=== PATIENT | female | born 1970 | race Caucasian/White ===

== ENCOUNTER → 2019-09-17 19:47 | Outpatient (CLI) | payer MEDICARE, MEDICAID, SELFPAY ==
[2019-09-17 19:50] LABS: Microscopic, Urine URINE MICROSCOPIC (MICROSCOPIC)
[2019-09-17 20:00] LABS: Basophils % 0.1 % (0.1-2.0); Hematocrit 39.7 % (37.0-47.0); Lymphocytes # 0.6 K/mm3 (0.7-4.5); Lymphocytes % 3.1 % (10-50); Mean Corpuscular HGB Conc 32.9 g/dL (31.8-35.4); Mean Corpuscular Hemoglobin 34.7 pg (27.0-31.2); Mean Corpuscular Volume 105.6 fl (81-99); Monocytes # 1.1 K/mm3 (0.1-1.0); Monocytes % 5.4 % (1.7-9.3); Neutrophils # 17.6 K/mm3 (1.8-7.8); Neutrophils % 91.3 % (37.0-80.0); Platelet Count 156 K/mm3 (142-424); Red Blood Count 3.76 M/mm3 (4.20-5.40); Red Cell Distribution Width 12.9 % (11.5-17.5); White Blood Count 19.3 K/mm3 (4.8-10.8)
[2019-09-17 20:08] LABS: MANUAL DIFFERENTIAL MANUAL DIFFERENTIAL (MANUAL DIFF)
[2019-09-17 20:21] LABS: Appearance,Urine CLEAR (Clear); Bilirubin,Urine Negative (Negative); Blood, Urine Negative (Negative); Glucose,Urine (UA) Negative (Negative); Ketones,Urine Negative (Negative); Leukocyte Esterase,Urine Negative (Negative); Nitrate,Urine Negative (Negative); PH,Urine 6.5 (5.0-8.5); Protein,Urine 2+ (Negative); Specific Gravity, Urine >= 1.030 (1.005-1.030)
[2019-09-17 20:28] LABS: Alanine Aminotransferase 21 U/L (12-78); Albumin Level 2.4 gm/dL (3.4-5.0); Albumin/Globulin Ratio 0.6 (1.1-1.8); Alkaline Phosphatase 111 U/L (46-116); Anion Gap 14.4 mEq/L (5-15); Aspartate Amino Transferase 33 U/L (15-37); Bilirubin,Total 0.4 mg/dL (0.2-1.0); Blood Urea Nitrogen 15 mg/dL (7-18); Calcium 8.9 mg/dL (8.5-10.1); Carbon Dioxide 27 mmol/L (21.0-32.0); Chloride 98 mmol/L (98-107); Creatinine,Serum 0.74 mg/dL (0.55-1.02); Estimated Glomerular Filt Rate 84 ml/min (>60); GFR (African American) 101 ML/MIN (>60); Globulin 3.7 gm/dl (1.3-3.2); Glucose 88 mg/dL (74-106); Potassium 3.4 mmoL/L (3.5-5.1); Sodium 136 mmol/L (136-145); Total Protein,Serum 6.1 gm/dL (6.4-8.2)
[2019-09-17 20:35] LABS: Color,Urine Dark Yellow (Yellow)
[2019-09-17 20:36] LABS: Bacteria,Urine Trace /lpf; Squamous Epithelial Cell,Urine Occasional #/hpf (0-5); WBC,Urine Occasional #/hpf (0-3)
[2019-09-17 21:07] LABS: Anisocytosis 1+; Lymphocytes % 6 % (10-50); Macrocytosis 1+; Monocytes % 5 % (2-9); Neutrophils % 89 % (42-76); Platelet Estimate Normal; Total Cells Counted 100
== END ==
PROVIDERS: Visit Provider Emergency Medicine
DX: R50.9 Fever, unspecified (principal)
CPT/HCPCS: 80053; 81001; 85007; 85025; 87040; 87275; 87276

== ENCOUNTER → 2020-05-15 09:26 | Outpatient (CLI) | payer MEDICARE, MEDICAID, SELFPAY ==
[2020-05-16 16:36] LABS: Covid-19 Nasal PCR Sendout UK Not Detected
== END ==
PROVIDERS: PCP Emergency Medicine; Visit Provider Emergency Medicine
DX: Z03.818 Encounter for observation for suspected exposure to other biological agents ruled out (principal); R50.9 Fever, unspecified
CPT/HCPCS: U0003

== ENCOUNTER 2020-10-21 06:32 | Emergency (ER) | payer MEDICARE, MEDICAID, SELFPAY ==
[2020-10-21 06:33] VITALS: BP 166/96; PULSE 66; RESP 18; TEMP 36.4; O2SAT 94; BMI 21.6
--- NOTE | 2020-10-21 06:42 | XR_ITS ---
PROCEDURE: XR PELVIS 1-2V CLINICAL INDICATION: fall Posttraumatic pain COMPARISON: No exams were available for comparison TECHNIQUE: XR Pelvis AP View FINDINGS: No fracture or dislocation is evident. No significant degenerative change. No lytic or blastic change. IMPRESSION: No acute findings. Dictated by: Tommy Lam MD 10/21/2020 09:31 Tommy Lam MD in [place] 10/21/2020 09:31
--- NOTE | 2020-10-21 06:42 | CT_ITS ---
PROCEDURE: CT HEAD/BRAIN WO CON CLINICAL INDICATION: fall Head injury with headache/pain, contusion, abrasion or hematoma Deep brain stimulator implant COMPARISON: CT HDWO CT HEAD W/O CONTRAST from 09/22/2015 TECHNIQUE: Axial images obtained. All CT scans at the facility use one or more dose reduction, viz: automated exposure control, ma/kV adjustment per patient size (including targeted exams where dose is matched to indication, i.e. head), or iterative reconstruction technique. FINDINGS: Exam is limited by motion artifact. There are bilateral subthalamic nucleus deep brain stimulators in place. There is diffuse cerebral atrophy with enlarged ventricles with periventricular hypointensity consistent with ischemic gliotic change from microvascular disease. No midline shift mass effect intracranial hemorrhage, or hydrocephalus is evident. There is left parietal scalp soft tissue swelling. No calvarial fracture. No mastoid effusion or sinus air-fluid level. IMPRESSION: 1. Left parietal scalp swelling consistent with hematoma. 2. Subthalamic nucleus deep brain stimulators in place. 3. Atrophy with chronic ischemic gliotic change Dictated by: Tomym Lam MD 10/21/2020 09:26 Tommy Lam MD in [facility] 10/21/2020 09:26
--- NOTE | 2020-10-21 06:42 | XR_ITS ---
PROCEDURE: XR CHEST AP CLINICAL HISTORY: fall Posttraumatic pain COMPARISON: CR CXR1 CHEST-PORTABLE from 04/17/2016 CR CXR CHEST(2 VIEWS-NOT PORTABLE) from 04/18/2016 CR CXR1VP XR chest portable from 02/07/2018 FINDINGS: The cardiomediastinal silhouette and pulmonary vascularity are within normal limits. The lungs are clear without infiltrates, suspicious nodules, or pleural effusions. Neurostimulator device is present with the power pack in the right infraclavicular region. There does appear to be post surgical changes of the distal aspect of the right clavicle. IMPRESSION: No acute findings. Dictated by: Tommy Lam MD 10/21/2020 09:30 Tommy Lam MD in [facility] 10/21/2020 09:30
--- NOTE | 2020-10-21 06:42 | CT_ITS ---
PROCEDURE: CT CERVICAL SPINE WO CON CLINICAL INDICATION: fall Neck injury with pain, contusion/abrasion or hematoma, cervical sprain/strain the COMPARISON: No exams were available for comparison TECHNIQUE: Axial images obtained with sagittal and coronal reformats. All CT scans at the facility use one or more dose reduction, viz: automated exposure control, ma/kV adjustment per patient size (including targeted exams where dose is matched to indication, i.e. head), or iterative reconstruction technique. Axial spiral CT scanning performed of the cervical spine beginning at the base of the skull and continuing to the upper T-spine. 3-D multiplanar reconstruction with 3-D manipulation of volumetric data set in image rendering was completed by the radiologist and/or technologist with the supervision of the radiologist on independent workstation. FINDINGS: No fracture or dislocation. No lytic or blastic change. There is reversal of the cervical lordosis which may be due to patient position or muscle spasm. Degenerative disc disease is present C4-C5 C5-C6 and C6-C7. There is facet and uncovertebral hypertrophy with multilevel foraminal narrowing. Lung apices are clear. IMPRESSION: 1. No acute fracture. 2. Multilevel cervical spondylosis with reversal of lordosis Dictated by: Tommy Lam MD 10/21/2020 09:29 Tommy Lam MD in [facility] 10/21/2020 09:29
--- NOTE | 2020-10-21 06:50 | PC.NURSE ---
Dr Anders at bedside and Dermabond to approx 2cm lac on forehead, bleeding controlled
--- NOTE | 2020-10-21 07:30 | HMH.EDFALL ---
ED Disposition Clinical Impression: Sem[place]'s disease Fall Qualifiers: Encounter type: initial encounter Qualified Code(s): W19.XXXA - Unspecified fall, initial encounter Laceration of face Qualifiers: Encounter type: initial encounter Qualified Code(s): S01.81XA - Laceration without foreign body of other part of head, initial encounter Head contusion Qualifiers: Encounter type: initial encounter Contusion of head detail: scalp Qualified Code(s): S00.03XA - Contusion of scalp, initial encounter Disposition: Home, Self-Care Condition on Discharge: Good Instructions: How to Prevent Falls Additional Instructions: resume prev orders Referrals: Christopher Anders MD [Primary Care Provider] - - Critical Care Critical Care Time: No Attestation: On 10/21/20, the high probability of a clinically significant, sudden or life threatening deterioration of the following system(s) required my full and direct attention, intervention and personal management. The time I documented below is in addition to time spent performing reported procedures but includes the following listed in this critical care notation. Medical Decision Making - Medical Records Medical records reviewed: Yes: I reviewed the patient's medical records. - Uday Inquiry Pt receiving controlled substance: No Vital Signs: 10/21/20 06:33 Temperature 97.5 F L Temperature Source Oral Pulse Rate [Right] 66 Respiratory Rate 18 Blood Pressure [Right Arm] 166/96 H Blood Pressure Mean [Right Arm] 119 Blood Pressure Source [Right Arm] Automatic Cuff Blood Pressure Position [Right Arm] Supine 02 Sat by Pulse Oximetry 94 L Oxygen Delivery Method Room Air Orders (Tests/Meds): ORDERS Category Date Time Status CT cervical spine wo con Stat Cat Scan 10/21/20 06:[address] head/brain wo con Stat Cat Scan 10/21/20 06:42 Taken Pelvis XR 1-2 views [XR pelvis 1-2V] Stat Exams 10/21/20 06:42 Taken XR chest AP Stat Exams 10/21/20 06:42 Taken - Radiology Data #1 Image(s): Chest, Pelvis Image Reviewed: Yes I reviewed the patient's radiology image Preliminary Findings: No Fracture Seen - CT Data CT Scan: Head, C-Spine Time Received: 07:[address] Reviewed: Yes: I have viewed the radiologist's interpretation Preliminary Findings: Abnormal, No Fracture Seen Fall HPI - General Chief Complaint: Fall Stated Complaint: fall Time Seen by Provider: 10/21/20 06:50 Mode of Arrival: EMS Source of Information: Patient, EMS, Medical Record Limitations: Physical Limitations Description of Symptoms (Recalled from ER Triage Doc. by RN): Pt fell [facility] with small Lac to forehead [facility] staff denies pt LOC. Pt baseline is non-verbal. - History of Present Illness HPI Narrative: fell at f with facial lac and has known yousuf MD complaint: fall Onset (ago): hour(s) Fall from: out of bed Fall witnessed: no [facility] Loss of consciousness: none Prolonged down time: no Location of injury: head, face, neck Severity: moderate Associated symptoms (after fall): denies - Related Data Home Medications Medication Instructions Recorded Confirmed acetaminophen 500 mg tablet 500 mg PO Q6H PRN tab 01/01/18 09/25/20 amantadine HCl 100 mg capsule 100 mg PO TID cap 01/01/18 09/25/20 bisacodyl 10 mg rectal suppository 10 mg IN ONCE PRN 01/01/18 09/25/20 clonazepam 0.5 mg tablet 0.5 mg PO DAILY tab 01/01/18 09/25/20 clonazepam 2 mg tablet 2 mg PO QHS 01/01/18 09/25/20 dextromethorphan-guaifenesin 10 10 ml PO Q4-6H PRN 01/01/18 09/25/20 mg-100 mg/5 mL oral liquid divalproex 125 mg capsule,delayed 500 mg PO BID cap 01/01/18 09/25/20 release sprinkle docusate sodium 250 mg capsule 250 mg PO DAILY cap 01/01/18 09/25/20 fluticasone propionate 50 2 spray INTRANASAL DAILY g 01/01/18 09/25/20 mcg/actuation nasal spray,suspension hydrocodone 5 mg-acetaminophen 325 1 tab PO QID PRN tab 01/01/18 09/25/20 mg tablet
[2020-10-21 07:32] VITALS: BP 171/86; PULSE 71; RESP 16; O2SAT 93
[2020-10-21 08:38] VITALS: BP 168/92; PULSE 76; RESP 16; TEMP 36.4; O2SAT 96
--- NOTE | 2020-10-21 08:38 | PC.NURSE ---
[facility]
== END 2020-10-21 08:53 | disposition home or self-care (01) ==
PROVIDERS: Emergency Provider Emergency Medicine; PCP Emergency Medicine
DX: S01.81XA Laceration without foreign body of other part of head, initial encounter (principal); W01.0XXA Fall on same level from slipping, tripping and stumbling without subsequent striking against object, initial encounter; Y92.129 Unspecified place in nursing home as the place of occurrence of the external cause; F41.8 Other specified anxiety disorders; G10 Huntington's disease; F02.81 Dementia in other diseases classified elsewhere, unspecified severity, with behavioral disturbance; K21.9 Gastro-esophageal reflux disease without esophagitis; Z88.5 Allergy status to narcotic agent; Z79.899 Other long term (current) drug therapy
CPT/HCPCS: 12011; 70450; 71045; 72125; 72170; 99284

== ENCOUNTER → 2020-11-19 20:54 | Outpatient (CLI) | payer MEDICARE, MEDICAID, SELFPAY | PROVIDERS: PCP Nurse Practitioner Family; Visit Provider Nurse Practitioner Family | DX: U07.1 COVID-19 (principal) | CPT/HCPCS: U0003 ==

== ENCOUNTER 2020-11-23 23:16 | Inpatient (IN) | payer MEDICARE, MEDICAID, SELFPAY ==
[2020-11-23 23:06] VITALS: BMI 21.9
--- NOTE | 2020-11-23 23:06 | XR_ITS ---
PROCEDURE: XR CHEST PORTABLE CLINICAL HISTORY: shortness of air Shortness breath COMPARISON: CR CXR CHEST(2 VIEWS-NOT PORTABLE) from 04/18/2016 CR CXR1VP XR chest portable from 02/07/2018 CR XR CHEST AP from 10/21/2020 FINDINGS: The cardiomediastinal silhouette and pulmonary vascularity are within normal limits. A neurostimulator device is present projecting over right upper lobe. Consolidation is present in the right perihilar region and right lung base medially. The distal aspect of the right clavicle is missing and may be postsurgical. No acute bony abnormalities. IMPRESSION: Pneumonia in the right perihilar region and right middle lobe Dictated by: Tommy Lam MD 11/24/2020 06:14 Tommy Lam MD in [place] 11/24/2020 06:14
--- NOTE | 2020-11-23 23:20 | ECG_ITS ---
APPROVED REPORT Exam: Resting ECG HR:107 bpm ECG Measurements Heart Rate 107 AXES DC 134 P 81 QRSd 78 QRS 70 QT 292 T 85 QTc 389 Conclusion Sinus tachycardia Otherwise normal ECG Electronically signed by : Eddie Flowers, 11/24/2020 06:42:33
[2020-11-23 23:26] VITALS: RESP 26; O2SAT 87
[2020-11-23 23:29] VITALS: BP 140/74; PULSE 102; RESP 32; TEMP 37.8; O2SAT 92; BMI 20.1
[2020-11-23 23:30] VITALS: BP 96/64; PULSE 102; RESP 17; O2SAT 92
[2020-11-23 23:30] LABS: Basophils % 0.4 % (0.1-2.0); Eosinophils % 0.3 % (0.1-12.0); Hematocrit 39.3 % (37.0-47.0); Hemoglobin 13.1 g/dL (12.2-16.2); Lymphocytes # 0.3 K/mm3 (0.7-4.5); Lymphocytes % 6.7 % (10-50); Mean Corpuscular HGB Conc 33.3 g/dL (31.8-35.4); Mean Corpuscular Hemoglobin 33.9 pg (27.0-31.2); Mean Corpuscular Volume 101.6 fl (81-99); Mean Platelet Volume 8.6 fl (7.4-10.4); Monocytes # 0.3 K/mm3 (0.1-1.0); Monocytes % 7.3 % (1.7-9.3); Neutrophils # 3.5 K/mm3 (1.8-7.8); Neutrophils % 85.3 % (37.0-80.0); Platelet Count 132 K/mm3 (142-424); Red Blood Count 3.87 M/mm3 (4.20-5.40); White Blood Count 4.1 K/mm3 (4.8-10.8)
[2020-11-23 23:32] LABS: MANUAL DIFFERENTIAL MANUAL DIFFERENTIAL (MANUAL DIFF)
[2020-11-23 23:37] LABS: Alanine Aminotransferase 24 U/L (12-78); Alkaline Phosphatase 109 U/L (38-126); Anion Gap 14.1 mEq/L (5-15); Aspartate Amino Transferase 37 U/L (14-36); Bilirubin,Direct 0.4 mg/dl (0.0-0.4); Bilirubin,Indirect 0.1 mg/dL (0.0-0.9); Bilirubin,Total 0.5 mg/dl (0.2-1.3); Blood Urea Nitrogen 20 mg/dl (7-17); Calcium 9.6 mg/dl (8.4-10.2); Carbon Dioxide 29 mmol/L (22.0-30.0); Chloride 103 mmol/L (98-107); Creatinine Clearance Estimated 78 mL/min (50-200); Estimated Glomerular Filt Rate 89 ml/min (>60); GFR (African American) 108 ML/MIN (>60); Glucose 160 mg/dl (74-100); Potassium 4.1 mmoL/L (3.5-5.1); Sodium 142 mmol/L (136-145); Total Protein,Serum 7.7 g/dl (6.3-8.2)
[2020-11-23 23:47] LABS: NT Pro Brain Natriuretic Pep. 121 pg/mL (0-125)
[2020-11-23 23:49] LABS: Troponin I 0.02 ng/ml (0.00-0.034)
[2020-11-23 23:51] LABS: Lactic Acid 1.4 mmol/L (0.7-2.1)
[2020-11-23 23:53] LABS: Coronavirus 19 IgG Antibody Negative (Negative); Coronavirus 19 IgM Antibody Negative (Negative)
[2020-11-24] VITALS (18 sets, daily range): BP systolic 91–145; BP diastolic 53–84; PULSE 67–102; RESP 15–26; TEMP 36.6–37.3; O2SAT 90–100; BMI 19.7; BMI 19.9; BMI 19.8
[2020-11-24 00:06] LABS: Procalcitonin 0.644 ng/mL (0.0-2.0)
[2020-11-24 00:14] LABS: ABG Base Excess 1.5 mmol/L (-2.4-2.3); ABG Oxygen Saturation 92 % (90-100); ABG PCO2 41.3 mmhg (35.0-45.0); ABG PH 7.42 mmol/L (7.35-7.45); ABG PO2 62.6 mmhg (80-100); ABG TCO2 27.3 mmhg (23-27); Allen's Test Acceptable; Oxygen 5l nc %
[2020-11-24 00:15] LABS: Source Right Radial
[2020-11-24 00:17] LABS: Lymphocytes % 8 % (10-50); Macrocytosis 1+; Monocytes % 4 % (2-9); Neutrophils % 88 % (42-76); Platelet Estimate Normal; Stomatocytes 1+; Total Cells Counted 100
--- NOTE | 2020-11-24 00:24 | HMH.EDSOB ---
ED Disposition Clinical Impression: Pneumonia due to COVID-19 virus, [place]'s disease, Pseudobulbar affect Respiratory failure with hypoxia Qualifiers: Chronicity: acute Qualified Code(s): J96.01 - Acute respiratory failure with hypoxia Disposition: Admitted As Inpatient Condition on Discharge: Serious - Critical Care Critical Care Time: No Attestation: On 11/23/20, the high probability of a clinically significant, sudden or life threatening deterioration of the following system(s) required my full and direct attention, intervention and personal management. The time I documented below is in addition to time spent performing reported procedures but includes the following listed in this critical care notation. Medical Decision Making - Medical Records Medical records reviewed: Yes: I reviewed the patient's medical records. - Uday Inquiry Pt receiving controlled substance: No Vital Signs: 11/23/20 23:29 11/23/20 23:30 11/24/20 00:00 Temperature 100.0 F H Temperature Source Rectal Pulse Rate [Right] 102 H 102 H 102 H Respiratory Rate 32 H 17 17 Blood Pressure [Right Arm] 140/74 96/64 L 99/84 L Blood Pressure Mean [Right Arm] 96 74 89 Blood Pressure Source [Right Arm] Automatic Cuff Automatic Cuff Automatic Cuff Blood Pressure Position [Right Arm] Supine Supine Supine 02 Sat by Pulse Oximetry 92 L 92 L 92 L Oxygen Delivery Method Nasal Cannula Oxygen Flow Rate (LPM) 5 11/24/20 00:30 11/24/20 01:00 11/24/20 01:30 Temperature Temperature Source Pulse Rate [Right] 96 H 97 H 99 H Respiratory Rate 17 24 24 Blood Pressure [Right Arm] 93/66 L 93/66 L 110/64 Blood Pressure Mean [Right Arm] 75 75 79 Blood Pressure Source [Right Arm] Automatic Cuff Automatic Cuff Automatic Cuff Blood Pressure Position [Right Arm] Supine Sitting 02 Sat by Pulse Oximetry 96 95 95 Oxygen Delivery Method Nasal Cannula Nasal Cannula Nasal Cannula Oxygen Flow Rate (LPM) 5 5 5 11/24/20 02:00 11/24/20 02:30 11/24/20 03:00 Temperature Temperature Source Pulse Rate [Right] 100 H 100 H 98 H Respiratory Rate 26 H 25 H 25 H Blood Pressure [Right Arm] 108/59 L 93/53 L 92/68 L Blood Pressure Mean [Right Arm] 75 66 76 Blood Pressure Source [Right Arm] Automatic Cuff Automatic Cuff Automatic Cuff Blood Pressure Position [Right Arm] Sitting Supine 02 Sat by Pulse Oximetry 96 96 96 Oxygen Delivery Method Nasal Cannula Nasal Cannula Nasal Cannula Oxygen Flow Rate (LPM) 5 5 5 11/24/20 03:35 11/24/20 03:51 Temperature 99.2 F Temperature Source Rectal Pulse Rate [Right] 95 H Respiratory Rate 24 Blood Pressure [Right Arm] 104/83 L Blood Pressure Mean [Right Arm] 90 Blood Pressure Source [Right Arm] Automatic Cuff Blood Pressure Position [Right Arm] Sitting 02 Sat by Pulse Oximetry 90 L Oxygen Delivery Method Nasal Cannula Oxygen Flow Rate (LPM) 5 - Lab Data Lab results reviewed: Yes: I reviewed the patient's lab results. Lab Results 11/23/20 23:06: Specimen Source Right radial, O2 % 5l nc, ABG pH 7.42, ABG pCO2 41.3, ABG pO2 62.6 L, ABG HCO3 26.0, ABG Total CO2 27.3 H, ABG O2 Saturation 92, ABG Base Excess 1.5, Tommy Test Acceptable 11/23/20 23:18: WBC 4.1 L, RBC 3.87 L, Hgb 13.1, Hct 39.3, MCV 101.6 H, MCH 33.9 H, MCHC 33.3, RDW 14.0, Plt Count 132 L, MPV 8.6, Neut % (Auto) 85.3 H, Lymph % (Auto) 6.7 L, [place] % (Auto) 7.3, Eos % (Auto) 0.3, Baso % (Auto) 0.4, Neut # (Auto) 3.5, Lymph # (Auto) 0.3 L, [place] # (Auto) 0.3, Eos # (Auto) 0.0, Baso # (Auto) 0.0, Total Counted 100, Neutrophils % (Manual) 88 H, Lymphocytes % (Manual) 8 L, Monocytes % (Manual) 4, Platelet Estimate Normal, Macrocytosis 1+, Stomatocytes 1+ 11/23/20 23:18: Sodium 142, Potassium 4.1, Chloride 103, Carbon Dioxide 29, Anion Gap 14.1, BUN 20 H, Creatinine 0.70, Estimated Creat Clear 78, Estimated GFR 89, Est GFR ( Amer) 108, Glucose 160 H, Calcium 9.6, Total Bilirubin 0.5, Direct Bilirubin 0.4, Conjugated Bilirubin 0.0, Indirect Biliru
[2020-11-24 03:20] LABS: Troponin I 0.03 ng/ml (0.00-0.034)
--- NOTE | 2020-11-24 03:54 | PC.NURSE ---
Pt was repositioned to right side propped up by pillows to knees and head support, propped with another pillow to her back.
--- NOTE | 2020-11-24 05:29 | PC.NURSE ---
RASHEED Smith was updated on pt condition and admission status.
--- NOTE | 2020-11-24 05:30 | PC.NURSE ---
Password was set up with RASHEED it is Christopher
--- NOTE | 2020-11-24 06:17 | PC.NURSE ---
patient up to floor via stretcher.
--- NOTE | 2020-11-24 07:22 | P.CONPHA_ITS ---
[facility] Pharmacy VTE Monitoring - Patient Demographics Admission date: 11/24/20 Report Date: 11/24/20 Time: 07:22 Allergies/Adverse Reactions: Patient Allergies codeine [CODEINE] Allergy (Unknown, Verified 09/25/20 18:35) I-RASH Height: 1.57 m Weight: 49.186 kg Patient Problems: Current Active Problems Pneumonia due to COVID-19 virus (Acute) Respiratory failure with hypoxia (Acute) Pseudobulbar affect (Chronic) Ulises's disease (Chronic) - VTE Risk Labs: VTE Related Lab Results Hgb 13.1 g/dL (12.2-16.2) 11/23/20 23:18 Hct 39.3 % (37.0-47.0) 11/23/20 23:18 Plt Count 132 K/mm3 (142-424) L 11/23/20 23:18 BUN 20 mg/dl (7-17) H 11/23/20 23:18 Creatinine 0.70 mg/dl (0.52-1.04) 11/23/20 23:18 Estimated Creat Clear 78 mL/min (50-200) 11/23/20 23:18 - Prophylaxis VTE Prophylaxis Ordered?: Yes Types of VTE Prophylaxis: TEDS Knee High, Pharmacological Location of Applied Device: Bilateral Lower Extremeties Pharmacologic Type: Enoxaparin
--- NOTE | 2020-11-24 08:14 | PC.NURSE ---
verbal consent for photos and DNR obtained via telephone from Leda Smith with Chloe Mcfadden and myself at 0814
[2020-11-24 08:58] LABS: Alanine Aminotransferase 19 U/L (12-78); Albumin Level 3.3 g/dl (3.5-5.0); Albumin/Globulin Ratio 1.1 (1.1-1.8); Alkaline Phosphatase 96 U/L (38-126); Anion Gap 10.1 mEq/L (5-15); Aspartate Amino Transferase 27 U/L (14-36); Bilirubin,Total 0.3 mg/dl (0.2-1.3); Blood Urea Nitrogen 19 mg/dl (7-17); Calcium 9.1 mg/dl (8.4-10.2); Carbon Dioxide 29 mmol/L (22.0-30.0); Chloride 107 mmol/L (98-107); Creatinine Clearance Estimated 88 mL/min (50-200); Estimated Glomerular Filt Rate 106 ml/min (>60); GFR (African American) 129 ML/MIN (>60); Globulin 3.1 g/dL (1.3-3.2); Glucose 127 mg/dl (74-100); Potassium 4.1 mmoL/L (3.5-5.1); Sodium 142 mmol/L (136-145); Total Protein,Serum 6.4 g/dl (6.3-8.2)
--- NOTE | 2020-11-24 09:40 | HMH.HP ---
*Admission Date: 11/24/20 *Chief complaint: Shortness of Breath *History of present illness: [facility] reports pt only has O2 sats in 70's on 2 L/M [facility] she is positive for COVID 19. Pt non-verbal from [place] disease. Nebulizer tx at [facility] pt with known covid-19 with developing hypoxia at [facility] and sent in for hypoxia. Lab work is unremarkable 11/23/20 CXR: The cardiomediastinal silhouette and pulmonary vascularity are within normal limits. A neurostimulator device is present projecting over right upper lobe. Consolidation is present in the right perihilar region and right lung base medially. The distal aspect of the right clavicle is missing and may be postsurgical. No acute bony abnormalities. IMPRESSION: Pneumonia in the right perihilar region and right middle lobe Patient has been seen coughing after oral intake and concerning for aspiration will have speech eval 50-year-old female patient lying in bed no visible respiratory distress. Oxygen saturations 96% on 5 L per nasal cannula. She is nonverbal and will respond with spastic movements and moans when touched. [facility] History I have reviewed the patient's past medical history: Yes Medical History: Reports:: Anxiety, Dementia, Depression, Gastroesophageal Reflux Disease(GERD) Denies:: Diabetes Mellitus Type 1, Diabetes Mellitus Type 2 *Have you ever received a pneumonia vaccine?: Yes *Have you received a flu vaccine this season?: Yes Other Medical History: Reports: Other - *Social History Smoking Status: Smoker, status unknown Alcohol Intake: never *Occupational Status:: disabled *Travel in the last 8 weeks: None - Psychiatric History Pschychiatric History:: Reports:: Anxiety, Depression Family Hx:: No significant family history Review of Systems - Review of Systems Review of systems:: unable to obtain Nonverbal due to medical condition Meds Home Medications Medication Instructions Recorded Confirmed Type acetaminophen 500 mg tablet 500 mg PO Q4HP PRN tab 01/01/18 11/24/20 History amantadine HCl 100 mg capsule 100 mg PO TID cap 01/01/18 11/24/20 History bisacodyl 10 mg rectal suppository 10 mg RC Q3D PRN 01/01/18 11/24/20 History clonazepam 0.5 mg tablet 1 mg PO DAILY tab 01/01/18 11/24/20 History docusate sodium 250 mg capsule 250 mg PO DAILY cap 01/01/18 11/24/20 History fluticasone propionate 50 1 spray NS DAILY g 01/01/18 11/24/20 History mcg/actuation nasal spray,suspension hydrocodone 5 mg-acetaminophen 325 0.5 tab PO Q4HP PRN tab 01/01/18 11/24/20 History mg tablet lactulose 10 gram/15 mL oral 30 ml PO DAILY PRN ml 01/01/18 11/24/20 History solution loperamide 2 mg capsule 2 mg PO Q6HP PRN cap 01/01/18 11/24/20 History loratadine 10 mg tablet 10 mg PO DAILY tab 01/01/18 11/24/20 History melatonin 3 mg tablet 3 mg PO HS 01/01/18 11/24/20 History omeprazole 40 mg capsule,delayed 40 mg PO BID cap 01/01/18 11/24/20 History release promethazine 12.5 mg tablet 25 mg PO Q4HP PRN tab 01/01/18 11/24/20 History Mag Carb/Aluminum Hydrox/Algin 30 ml PO Q4HP PRN 11/23/20 11/24/20 History [Acid Gone Antacid Liquid] Promethazine HCl [Phenadoz] 12.5 mg RC Q6HP PRN 11/23/20 11/24/20 History polyethylene glycoL 3350 17 gm PO DAILY PRN 11/23/20 11/24/20 History [Polyethylene Glycol 3350] Albuterol Sulfate [Albuterol 2 puffs IH QID 11/24/20 11/24/20 History Sulfate Hfa] Ascorbic Acid [Vitamin C 500mg 500 mg PO QID 11/24/20 11/24/20 History tablet] Azithromycin [Z-Brad 250mg Tab*] 250 mg PO DIRECTED 11/24/20 11/24/20 History Deutetrabenazine [Austedo] 24 mg PO BID 11/24/20 11/24/20 History Divalproex Sodium [Depakote 500 mg PO QID 11/24/20 11/24/20 History Sprinkle 125mg capsule] Guaifenesin/Dextromethorphan 5 ml PO Q4HP PRN 11/24/20 11/24/20 History [Robafen Dm Cough 100-10 mg/5Ml] Medroxyprogesterone Acetate 150 mg IM DIRECTED 11/24/20 11/24/20 History [Depo-Provera] Multivitamin with Foli
--- NOTE | 2020-11-24 10:26 | SW/DCPLANNER ---
This patient currently resides at [facility]. I have spoke with Cassie from [place] and she has stated that patient is [facility] level of care. I will continue to update Cassie until this patient is medically stable for discharge.
--- NOTE | 2020-11-24 11:50 | HMH.PHAINT ---
MEDICATION RECONCILIATION COMPLETED ON PATIENT USING MAR FROM INTERMEDIATE. -REBA WELCH, MORENAD
--- NOTE | 2020-11-24 14:00 | HMH.SLDYSPHA ---
Speech & Language Evaluation Speech/Language Dysphagia Evaluation Start: 11/24/20 13:43 Freq: ONCE Status: Active Protocol: Document 11/24/20 13:43 ESTEBAN (Rec: 11/24/20 14:00 ESTEBAN [id number]) Dysphagia Assess/Goals/Plan Assessment Date of Evaluation: 11/24/20 Evaluation Type Initial Certification Assessment/Problems Dysphagia Does Patient Qualify for Service No Qualify/Failure Comment Diet modifications made. Patient cannot follow directions on command so therapy is not a recommendation. Recommendations PHYSICIAN CERTIFICATION: The specified therapy services are required, authorized, and reviewed every 30 days. Diet Recommendations Pureed Liquid Type Recommendations Pudding Consistency SL Swallow Guidelines Assist w/all meals,High aspiration risk Dysphagia Swallow Precautions/Strategies Sitting Upright (90 deg), Liquids from Spoon,Small Bites and Sips,Alternate Liquids/ Solids Plan Pt/Guardian verbally ack understanding Yes: RN and CM notified of dx/prognosis/goals G -code Required No General Information General Current Food Consistancy NPO Dentition Edentulous Oxygen Status Nasal Cannula Dysphagia:Food Presentation Evaluation Food Type Pureed,Pudding Dysphagia Evaluation Summary Ms. Hdz, a 50 year old non- verbal female with [place]' s Disease was referred to Speech Therapy for a bedside evaluation of swallowing. It was discovered that Ms. Hdz is on pureed diet with pudding thick liquids. She was given pureed with pudding thick liquids today. No signs of dysphagia noted. Due to inability to follow directions , speech therapy is not recommended. She will be placed on pureed with pudding thick liquids. Stroke Dysphagia Assessment PHYSICIAN CERTIFICATION: I certify the specified therapy services for Padmini Hdz are required, authorized, and reviewed every 30 days.
--- NOTE | 2020-11-24 14:22 | HMH.PULMCON ---
*Admission Date: 11/24/20 *Reason for consult:: COVID-19 pneumonia *History of present illness: Ms. Hdz is a 50-year-old female who is nonverbal most of the history is obtained from the chart review, carries a diagnosis of Ul[place]'s disease [facility] resident was brought to the emergency department with worsening respiratory distress in the ED patient was found to be needing nasal cannula oxygen supplementation to maintain oxygen saturations greater than 88% and also found to be COVID-19 positive and further admitted to the isolation unit. [facility] History Medical History: Reports:: Anxiety, Dementia, Depression, Gastroesophageal Reflux Disease(GERD) Denies:: Diabetes Mellitus Type 1, Diabetes Mellitus Type 2 *Have you ever received a pneumonia vaccine?: Yes *Have you received a flu vaccine this season?: Yes Other Medical History: Reports: Other - *Social History Smoking Status: Smoker, status unknown Alcohol Intake: never *Occupational Status:: disabled *Travel in the last 8 weeks: None - Psychiatric History Pschychiatric History:: Reports:: Anxiety, Depression Family Hx:: No significant family history ROS - Review of Systems Review of systems:: unable to obtain Unable to obtain as patient is nonverbal Meds Home Medications Medication Instructions Recorded Confirmed Type acetaminophen 500 mg tablet 500 mg PO Q4HP PRN tab 01/01/18 11/24/20 History amantadine HCl 100 mg capsule 100 mg PO TID cap 01/01/18 11/24/20 History bisacodyl 10 mg rectal suppository 10 mg RC Q3D PRN 01/01/18 11/24/20 History clonazepam 0.5 mg tablet 1 mg PO DAILY tab 01/01/18 11/24/20 History docusate sodium 250 mg capsule 250 mg PO DAILY cap 01/01/18 11/24/20 History fluticasone propionate 50 1 spray NS DAILY g 01/01/18 11/24/20 History mcg/actuation nasal spray,suspension hydrocodone 5 mg-acetaminophen 325 0.5 tab PO Q4HP PRN tab 01/01/18 11/24/20 History mg tablet lactulose 10 gram/15 mL oral 30 ml PO DAILY PRN ml 01/01/18 11/24/20 History solution loperamide 2 mg capsule 2 mg PO Q6HP PRN cap 01/01/18 11/24/20 History loratadine 10 mg tablet 10 mg PO DAILY tab 01/01/18 11/24/20 History melatonin 3 mg tablet 3 mg PO HS 01/01/18 11/24/20 History omeprazole 40 mg capsule,delayed 40 mg PO BID cap 01/01/18 11/24/20 History release promethazine 12.5 mg tablet 25 mg PO Q4HP PRN tab 01/01/18 11/24/20 History Mag Carb/Aluminum Hydrox/Algin 30 ml PO Q4HP PRN 11/23/20 11/24/20 History [Acid Gone Antacid Liquid] Promethazine HCl [Phenadoz] 12.5 mg RC Q6HP PRN 11/23/20 11/24/20 History polyethylene glycoL 3350 17 gm PO DAILY PRN 11/23/20 11/24/20 History [Polyethylene Glycol 3350] Albuterol Sulfate [Albuterol 2 puffs IH QID 11/24/20 11/24/20 History Sulfate Hfa] Ascorbic Acid [Vitamin C 500mg 500 mg PO QID 11/24/20 11/24/20 History tablet] Azithromycin [Z-Brad 250mg Tab*] 250 mg PO DIRECTED 11/24/20 11/24/20 History Deutetrabenazine [Austedo] 24 mg PO BID 11/24/20 11/24/20 History Divalproex Sodium [Depakote 500 mg PO QID 11/24/20 11/24/20 History Sprinkle 125mg capsule] Guaifenesin/Dextromethorphan 5 ml PO Q4HP PRN 11/24/20 11/24/20 History [Robafen Dm Cough 100-10 mg/5Ml] Medroxyprogesterone Acetate 150 mg IM DIRECTED 11/24/20 11/24/20 History [Depo-Provera] Multivitamin with Folic Acid 400 mcg PO DAILY 11/24/20 11/24/20 History [Tab-A-Xavier Tablet] Sennosides/Docusate Sodium 2 each PO BID 11/24/20 11/24/20 History [Senokot-S Tablet] clonazePAM [Klonopin 1mg tablet] 2 mg PO HS 11/24/20 11/24/20 History ondansetron HCL [Ondansetron 8mg 8 mg PO TIDP PRN 11/24/20 11/24/20 History tab*] risperiDONE [Risperidone] 4 mg PO BID 11/24/20 11/24/20 History Allergies Allergy/AdvReac Type Severity Reaction Status Date / Time codeine [CODEINE] Allergy Unknown I-RASH Verified 09/25/20 18:35 Exam - Neck Exam Neck:: normal visual inspection - Respiratory Exam Respiratory:: lungs clear
--- NOTE | 2020-11-24 20:04 | PC.WOUNDNOTE ---
Wound Location: Length: Width: Depth: Undermining Y/N: Tunneling cm: Granulation %: Slough/necrotic tissue %: Inflammation/swelling Y/N: Pain and/or tenderness Y/N: Exudate: Serosanguinous Sanguinous Serosanguinous Seropurulent Purulent Color: Clear Kaitlynn Cloudy/milky Rake Red Green Yellow Brown Roy Blue Consistency: Thick Thin Amount: None Scant Small Moderate Large Odor Y/N: 1 x 1 R knee no drainage healing scab
--- NOTE | 2020-11-24 20:06 | PC.WOUNDNOTE ---
Wound Location: Length: Width: Depth: Undermining Y/N: Tunneling cm: Granulation %: Slough/necrotic tissue %: Inflammation/swelling Y/N: Pain and/or tenderness Y/N: Exudate: Serosanguinous Sanguinous Serosanguinous Seropurulent Purulent Color: Clear Kaitlynn Cloudy/milky [place] Red Green Yellow Brown Roy Blue Consistency: Thick Thin Amount: None Scant Small Moderate Large Odor Y/N: 2x 2 healing scab to back, no drainage or odor or redness
--- NOTE | 2020-11-24 20:07 | PC.NURSE ---
VSS. Pt continues on 4 L at this time. Have turned and repositioned q 2. No acute changes. Bath given. Did clarify diet with ST. Scattered crackles in lung dudley, incont of B&B. Non verbal this shift. Remains in isolation
--- NOTE | 2020-11-24 22:51 | PC.NURSE ---
2100 COURTESY ROUND TRASH EMPTIED AND GLOVES REFILLED
[2020-11-25] VITALS (8 sets, daily range): BP systolic 114–130; BP diastolic 68–90; PULSE 84–97; RESP 18–22; TEMP 36.4–37.2; O2SAT 94–99
--- NOTE | 2020-11-25 04:06 | PC.NURSE ---
Addendum entered by Berta Zepeda RN 11/25/20 06:09: Pt successfully weaned down to 2L NC, o2 sat is currently 97%. RA was 85%. Pt has developed a productive, wet cough this morning as well Original Note: Pt continues to be in contact and airborne precautions, w/ eye protection. Pt continues to be nonverbal this shift. Coarse crackles heard t/o all lung dudley. No cough noted. Pt continues to be incontinent of urine and bowels. Barrier cream applied to groin for some mild redness noted. Pt has been a q2h turn this shift, as well as q2h oral care provided by nursing staff. Pt successfully took po meds crushed in pudding. No other acute changes or complaints at this time.
[2020-11-25 05:33] LABS: Alanine Aminotransferase 17 U/L (12-78); Alkaline Phosphatase 87 U/L (38-126); Anion Gap 9.8 mEq/L (5-15); Aspartate Amino Transferase 27 U/L (14-36); Bilirubin,Total 0.3 mg/dl (0.2-1.3); Blood Urea Nitrogen 20 mg/dl (7-17); Calcium 8.7 mg/dl (8.4-10.2); Carbon Dioxide 31 mmol/L (22.0-30.0); Chloride 107 mmol/L (98-107); Creatinine Clearance Estimated 75 mL/min (50-200); Estimated Glomerular Filt Rate 89 ml/min (>60); GFR (African American) 108 ML/MIN (>60); Globulin 2.9 g/dL (1.3-3.2); Glucose 88 mg/dl (74-100); Potassium 3.8 mmoL/L (3.5-5.1); Sodium 144 mmol/L (136-145); Total Protein,Serum 5.9 g/dl (6.3-8.2)
--- NOTE | 2020-11-25 06:54 | PC.NURSE ---
0600 COURTESY ROUND TRASH EMPTIED
--- NOTE | 2020-11-25 08:45 | HMH.PULMPN ---
Internal Medicine - PN: Subj *Date: 11/25/20 *Time: 11:35 Interval history: No acute respirations overnight. Patient respiratory status improved from yesterday. Exam - Constitutional Constitutional:: no acute distress, comfortable - HENMT Exam HENMT: normocephalic, atraumatic - Neck Exam Neck:: normal visual inspection - Respiratory Exam Respiratory:: lungs clear, normal breath sounds - Cardiovascular Exam Cardiac:: S1, S2 - GI Exam GI:: soft - Skin Exam Skin: warm, no rash - Extremities Exam Extremities: no cyanosis, no clubbing, edema Assessment and Plan (1) Pneumonia due to COVID-19 virus Status: Acute Category: Medical Code(s): U07.1 - COVID-19; J12.82 - Pneumonia due to coronavirus disease 2019 (2) Respiratory failure with hypoxia Status: Acute Qualifiers: Chronicity: acute Qualified Code(s): J96.01 - Acute respiratory failure with hypoxia Category: Medical Code(s): J96.91 - Respiratory failure, unspecified with hypoxia (3) Pseudobulbar affect Status: Chronic Category: Medical Code(s): F48.2 - Pseudobulbar affect (4) Ulises's disease Status: Chronic Category: Medical Code(s): G10 - [place]'s disease - Assessment and plan all Dx Assessment and Plan for all problems:: #COVID-19 pneumonia: 50-year-old unknown prior history except for Ulises's disease and nonverbal presented to the hospital with worsening respiratory and found positive for COVID-19 pneumonia. Patient was initiated on ceftriaxone and clindamycin on admission with remdesivir and dexamethasone, changed to clindamycin and azithromycin Afebrile since admission. Hemodynamically stable. No evidence of leukocytosis. Renal function stable. Patient respiratory status improved since admission, today on 2 L nasal cannula. Plan: - Nasal cannula oxygen supplementation with O2 saturation goal of 88% 92%, wean as tolerated - Continue clindamycin x7 days and azithromycin x 5 days - Continue remdesivir and dexamethasone for COVID-19 pneumonia until discharge - Duo Nebs every 6 hours as needed Thank you for involving pulmonary in this patient care. We will continue to follow.
--- NOTE | 2020-11-25 08:48 | XR_ITS ---
PROCEDURE: XR CHEST PORTABLE CLINICAL HISTORY: PNM Pneumonia follow-up COMPARISON: CR [id number] XR chest portable from 02/07/2018 CR XR CHEST AP from 10/21/2020 CR XR CHEST PORTABLE from 11/23/2020 FINDINGS: The cardiomediastinal silhouette and pulmonary vascularity are within normal limits. Overlying stimulator device obscures the right suprahilar region. Patchy infiltrate is present in the left upper lobe and has developed in the interval. Right lower lobe infiltrate has improved. IMPRESSION: Mixed response with improvement in the right lower lobe pneumonia and development of left upper lobe pneumonia Dictated by: Tommy Lam MD 11/25/2020 11:16 Tommy Lam MD in [facility] 11/25/2020 11:16
--- NOTE | 2020-11-25 09:08 | P.PN_ITS ---
Internal Medicine - PN: Subj *Date: 11/25/20 *Time: 09:08 Interval history: pt alert laying in bed. Exam Vital signs and Labs for Last 24 Hours: Temp Pulse Resp BP Pulse Ox 98.4 F 88 20 130/83 94 L 11/25/20 08:00 11/25/20 08:00 11/25/20 08:00 11/25/20 08:00 11/25/20 08:00 Laboratory Results - last 24 hr 11/25/20 04:35: Sodium 144, Potassium 3.8, Chloride 107, Carbon Dioxide 31 H, Anion Gap 9.8, BUN 20 H, Creatinine 0.70, Estimated Creat Clear 75, Estimated GFR 89, Est GFR ( Amer) 108, Glucose 88 D, Calcium 8.7, Total Bilirubin 0.3, AST 27, ALT 17, Alkaline Phosphatase 87, Total Protein 5.9 L, Albumin 3.0 L , Globulin 2.9, Albumin/Globulin Ratio 1.0 L I & O for Last 24 hours: Intake & Output 11/22/20 11/23/20 11/24/20 11/25/20 11:59 11:59 11:59 11:59 Intake Total 1100 / 1100 1120 / 1120 Balance 1100 / 1100 1120 / 1120 Weight 108 lb 7 oz 108 lb 0.424 oz - Constitutional no acute distress, thin, chronically ill appearing - *Routine HEENT Exam Head: Present: normocephalic Eye: Present: PERRL ENT: Present: mucous membranes moist - *Routine Neck Exam Present: supple. Absent: lymphadenopathy - *Routine Respiratory Exam Present: rhonchi, wheezes - *Routine Cardiovascular Exam Present: RRR Comments: nerve stimulator to rt chest - *Routine Abdominal Exam Present: soft, normoactive bowel sounds. Absent: tenderness - *Routine Extremities Exam Present: normal capillary refill. Absent: cyanosis, clubbing, edema - *Routine Skin Exam Present: warm. Absent: rash - *Routine Neurological Exam Present: alert - Routine Psychiatric Exam Comments: pt answers simple yes or no Assessment and Plan (1) Pneumonia due to COVID-19 virus Status: Acute Category: Medical Code(s): U07.1 - COVID-19; J12.82 - Pneumonia due to coronavirus disease 2019 (2) Respiratory failure with hypoxia Status: Acute Qualifiers: Chronicity: acute Qualified Code(s): J96.01 - Acute respiratory failure with hypoxia Category: Medical Code(s): J96.91 - Respiratory failure, unspecified with hypoxia (3) Pseudobulbar affect Status: Chronic Category: Medical Code(s): F48.2 - Pseudobulbar affect (4) [place]'s disease Status: Chronic Category: Medical Code(s): G10 - Ulises's disease (5) Dementia in other diseases classified elsewhere with behavioral disturbance Status: Chronic Category: Medical Code(s): F02.81 - Dementia in other diseases classified elsewhere with behavioral disturbance (6) Difficulty in walking, not elsewhere classified Status: Chronic Category: Medical Code(s): R26.2 - Difficulty in walking, not elsewhere classified (7) Dysphagia, oropharyngeal phase Status: Chronic Category: Medical Code(s): R13.12 - Dysphagia, oropharyngeal phase - Assessment and plan all Dx Assessment and Plan for all problems:: rounded with dr delgadillo all orders per dr delgadillo poss dc tomorrow
[2020-11-25 09:30] LABS: Basophils % 0.2 % (0.1-2.0); Eosinophils % 0.1 % (0.1-12.0); Hematocrit 31.6 % (37.0-47.0); Hemoglobin 10.7 g/dL (12.2-16.2); Lymphocytes # 0.7 K/mm3 (0.7-4.5); Lymphocytes % 11.7 % (10-50); Mean Corpuscular Hemoglobin 35.1 pg (27.0-31.2); Mean Corpuscular Volume 103.4 fl (81-99); Mean Platelet Volume 9.5 fl (7.4-10.4); Monocytes # 0.4 K/mm3 (0.1-1.0); Monocytes % 7.3 % (1.7-9.3); Neutrophils # 4.9 K/mm3 (1.8-7.8); Neutrophils % 80.7 % (37.0-80.0); Platelet Count 137 K/mm3 (142-424); Red Blood Count 3.06 M/mm3 (4.20-5.40); Red Cell Distribution Width 13.8 % (11.5-17.5); White Blood Count 6.1 K/mm3 (4.8-10.8)
[2020-11-25 09:36] LABS: Chloride 118 mmol/L (98-107); Potassium 3.1 mmoL/L (3.5-5.1); Sodium 143 mmol/L (136-145)
[2020-11-25 09:39] LABS: Blood Urea Nitrogen 17 mg/dl (7-17); Creatinine Clearance Estimated 132 mL/min (50-200); Estimated Glomerular Filt Rate 170 ml/min (>60); GFR (African American) 205 ML/MIN (>60)
[2020-11-25 09:40] LABS: Anion Gap 4.1 mEq/L (5-15); Carbon Dioxide 24 mmol/L (22.0-30.0); Glucose 61 mg/dl (74-100)
[2020-11-25 09:48] LABS: Calcium 6.4 mg/dl (8.4-10.2)
--- NOTE | 2020-11-25 11:19 | PC.NURSE ---
pt unable to produce sputum samlpe. Cup left at bedside.
--- NOTE | 2020-11-25 11:58 | PC.NURSE ---
Called at 1158 and reported calcium of 6.4 to [place], she stated she would make Vanita Shultz aprn or Alfonso Velásquez aprn aware.
--- NOTE | 2020-11-25 18:25 | PC.NURSE ---
Pt is non verbal. CB in reach. Turned and repositioned q 2. NAD. Remains in isolation. Continues on nasal cannula. VSS. Incont of B&B with briefs worn. Did have iv calcium this shift. S1,S2. Ate minimal amts of meals this shift. Continues on thickened liquids and pureed diet.
--- NOTE | 2020-11-26 00:01 | PC.NURSE ---
2100 COURTESY ROUND TRASH AND LINENS EMPTIED
[2020-11-26 04:00] VITALS: BP 108/80; PULSE 89; RESP 18; TEMP 36.6; O2SAT 99
[2020-11-26 05:10] VITALS: BMI 19.5
[2020-11-26 08:00] VITALS: BP 120/95; PULSE 86; RESP 19; TEMP 37.2; O2SAT 96
[2020-11-26 08:28] LABS: Basophils % 0.2 % (0.1-2.0); Eosinophils % 0.1 % (0.1-12.0); Hemoglobin 11.4 g/dL (12.2-16.2); Lymphocytes # 0.9 K/mm3 (0.7-4.5); Lymphocytes % 12.6 % (10-50); Mean Corpuscular HGB Conc 34.4 g/dL (31.8-35.4); Mean Corpuscular Hemoglobin 34.7 pg (27.0-31.2); Mean Corpuscular Volume 100.9 fl (81-99); Mean Platelet Volume 9.6 fl (7.4-10.4); Monocytes # 0.4 K/mm3 (0.1-1.0); Monocytes % 5.6 % (1.7-9.3); Neutrophils # 5.6 K/mm3 (1.8-7.8); Neutrophils % 81.5 % (37.0-80.0); Platelet Count 170 K/mm3 (142-424); Red Blood Count 3.27 M/mm3 (4.20-5.40); Red Cell Distribution Width 13.8 % (11.5-17.5); White Blood Count 6.8 K/mm3 (4.8-10.8)
[2020-11-26 08:31] LABS: Alanine Aminotransferase 18 U/L (12-78); Alkaline Phosphatase 85 U/L (38-126); Anion Gap 8.7 mEq/L (5-15); Aspartate Amino Transferase 31 U/L (14-36); Bilirubin,Total 0.2 mg/dl (0.2-1.3); Blood Urea Nitrogen 21 mg/dl (7-17); Carbon Dioxide 32 mmol/L (22.0-30.0); Chloride 107 mmol/L (98-107); Creatinine Clearance Estimated 74 mL/min (50-200); Estimated Glomerular Filt Rate 89 ml/min (>60); GFR (African American) 108 ML/MIN (>60); Globulin 3.1 g/dL (1.3-3.2); Glucose 78 mg/dl (74-100); Potassium 3.7 mmoL/L (3.5-5.1); Sodium 144 mmol/L (136-145); Total Protein,Serum 6.1 g/dl (6.3-8.2)
--- NOTE | 2020-11-26 09:08 | HMH.DCSUM ---
General - General Admission date:: 11/24/20 Discharge date: 11/26/20 HPI HPI: [facility]dc reports pt only has O2 sats in 70's on 2 L/M N/C she is positive for COVID 19. Pt non-verbal from [place]tons disease. Nebulizer tx at [facility] pt with known covid-19 with developing hypoxia at [facility] and sent in for hypoxia. Lab work is unremarkable 11/23/20 CXR: The cardiomediastinal silhouette and pulmonary vascularity are within normal limits. A neurostimulator device is present projecting over right upper lobe. Consolidation is present in the right perihilar region and right lung base medially. The distal aspect of the right clavicle is missing and may be postsurgical. No acute bony abnormalities. IMPRESSION: Pneumonia in the right perihilar region and right middle lobe Patient has been seen coughing after oral intake and concerning for aspiration will have speech eval 50-year-old female patient lying in bed no visible respiratory distress. Oxygen saturations 96% on 5 L per nasal cannula. She is nonverbal and will respond with spastic movements and moans when touched. Hospital Course Hospital Course: Laboratory Tests 11/23/20 11/23/20 11/23/20 23:06 23:18 23:18 WBC 4.1 L RBC 3.87 L Hgb 13.1 Hct 39.3 MCV 101.6 H MCH 33.9 H MCHC 33.3 RDW 14.0 Plt Count 132 L MPV 8.6 Neut % (Auto) 85.3 H Lymph % (Auto) 6.7 L [place] % (Auto) 7.3 Eos % (Auto) 0.3 Baso % (Auto) 0.4 Neut # (Auto) 3.5 Lymph # (Auto) 0.3 L [place] # (Auto) 0.3 Eos # (Auto) 0.0 Baso # (Auto) 0.0 Total Counted 100 Neutrophils % (Manual) 88 H Lymphocytes % (Manual) 8 L Monocytes % (Manual) 4 Platelet Estimate Normal Macrocytosis 1+ Stomatocytes 1+ Specimen Source Right radial O2 % 5l nc ABG pH 7.42 ABG pCO2 41.3 ABG pO2 62.6 L ABG HCO3 26.0 ABG Total CO2 27.3 H ABG O2 Saturation 92 ABG Base Excess 1.5 Tommy Test Acceptable Sodium 142 Potassium 4.1 Chloride 103 Carbon Dioxide 29 Anion Gap 14.1 BUN 20 H Creatinine 0.70 Estimated Creat Clear 78 Estimated GFR 89 Est GFR ( Amer) 108 Glucose 160 H Lactate Calcium 9.6 Total Bilirubin 0.5 Direct Bilirubin 0.4 Conjugated Bilirubin 0.0 Indirect Bilirubin 0.1 Unconjugated Bilirubin 0.0 AST 37 H ALT 24 Alkaline Phosphatase 109 Troponin I 0.02 NT-Pro-B Natriuret Pep Total Protein 7.7 Albumin 4.0 Globulin Albumin/Globulin Ratio Procalcitonin SARS-CoV-2 IgG Ab (Rapid) SARS-CoV-2 IgM Ab (Rapid) 11/23/20 11/23/20 11/23/20 23:18 23:18 23:18 WBC RBC Hgb Hct MCV MCH MCHC RDW Plt Count MPV Neut % (Auto) Lymph % (Auto) [place] % (Auto) Eos % (Auto) Baso % (Auto) Neut # (Auto) Lymph # (Auto) [place] # (Auto) Eos # (Auto) Baso # (Auto) Total Counted Neutrophils % (Manual) Lymphocytes % (Manual) Monocytes % (Manual) Platelet Estimate Macrocytosis Stomatocytes Specimen Source O2 % ABG pH ABG pCO2 ABG pO2 ABG HCO3 ABG Total CO2 ABG O2 Saturation ABG Base Excess Tommy Test Sodium Potassium Chloride Carbon Dioxide Anion Gap BUN Creatinine Estimated Creat Clear Estimated GFR Est GFR ( Amer) Glucose Lactate 1.4 Calcium Total Bilirubin Direct Bilirubin Conjugated Bilirubin Indirect Bilirubin Unconjugated Bilirubin AST ALT Alkaline Phosphatase Troponin I NT-Pro-B Natriuret Pep 121 Total Protein Albumin Globulin Albumin/Globulin Ratio Procalcitonin SARS-CoV-2 IgG Ab (Rapid) Negative SARS-CoV-2 IgM Ab (Rapid) Negative 11/23/20 11/24/20 11/24/20 23:18 01:55 08:30 WBC RBC Hgb Hct MCV MCH MCHC RDW Plt Count
--- NOTE | 2020-11-26 09:37 | SW/DCPLANNER ---
I have notified Kayli with [facility] that this patient will discharge back today. Kayli has stated that patient will NOT need a COVID swab.
[2020-11-26 12:00] VITALS: BP 90/64; PULSE 97; RESP 22; TEMP 37.2; O2SAT 94
--- NOTE | 2020-11-26 13:08 | P.PN_ITS ---
Internal Medicine - PN: Subj *Date: 11/26/20 *Time: 13:08 Interval history: No acute events overnight. Patient respiratory status improved, on room air Exam - Constitutional Constitutional:: Present: no acute distress, comfortable - Respiratory Exam Respiratory:: Present: lungs clear, normal breath sounds - GI Exam GI:: Present: soft - Skin Exam Skin: Present: warm, no rash - Extremities Exam Extremities: Present: no cyanosis, no clubbing, edema Assessment and Plan (1) Pneumonia due to COVID-19 virus Status: Acute Category: Medical Code(s): U07.1 - COVID-19; J12.82 - Pneumonia due to coronavirus disease 2019 (2) Respiratory failure with hypoxia Status: Acute Qualifiers: Chronicity: acute Qualified Code(s): J96.01 - Acute respiratory failure with hypoxia Category: Medical Code(s): J96.91 - Respiratory failure, unspecified with hypoxia (3) Pseudobulbar affect Status: Chronic Category: Medical Code(s): F48.2 - Pseudobulbar affect (4) [place]'s disease Status: Chronic Category: Medical Code(s): G10 - Ulises's disease (5) Malnutrition Status: Acute Category: Medical Code(s): E46 - Unspecified protein-calorie malnutrition - Assessment and plan all Dx Assessment and Plan for all problems:: #COVID-19 pneumonia: 50-year-old unknown prior history except for Ulises's disease and nonverbal presented to the hospital with worsening respiratory and found positive for COVID-19 pneumonia. Patient was initiated on ceftriaxone and clindamycin on admission with remdesivir and dexamethasone, changed to clindamycin and azithromycin Patient afebrile, hemodynamically stable with no evidence of leukocytosis over the hospital admission. Patient territorial bilateral clear breath sounds. No audible wheezing heard. Bilateral 1+ lower extremity edema noted Patient initially needing 4 L nasal cannula oxygen supplementation, eventually weaned to room air within 48 hours. Plan: - Continue clindamycin x7 days and azithromycin x 5 days - Continue remdesivir and dexamethasone for COVID-19 pneumonia until discharge - Duo Nebs every 6 hours as needed Thank you for involving pulmonary in this patient care.
--- NOTE | 2020-11-26 14:22 | PC.NURSE ---
ATTEMPTED TO CALL REPORT TO [facility]. SAID THEY COULDN'T TAKE REPORT AT THIS TIME. WILL CALL BACK SHORTLY.
--- NOTE | 2020-11-26 14:40 | PC.NURSE ---
CALLED REPORT TO TYLOR AT [facility].
--- NOTE | 2020-11-26 14:47 | PC.NURSE ---
CALLED [facility] TO TRANSPORT PT TO [place].
[2020-11-26 16:00] VITALS: BP 110/72; PULSE 90; RESP 19; TEMP 37.1; O2SAT 96
== END 2020-11-26 16:45 | DRG 177 ==
LOC: ER 23:19 → 2ND 11-24 05:33
PROVIDERS: Nurse Practitioner Family; Admitting Provider Family Medicine; Emergency Provider Emergency Medicine; PCP Emergency Medicine; Visit Provider Emergency Medicine
DX: U07.1 COVID-19 (principal); J12.82 Pneumonia due to coronavirus disease 2019; J96.01 Acute respiratory failure with hypoxia; E43 Unspecified severe protein-calorie malnutrition; Z68.1 Body mass index [BMI] 19.9 or less, adult; G10 Huntington's disease; F48.2 Pseudobulbar affect; R13.12 Dysphagia, oropharyngeal phase; Z79.51 Long term (current) use of inhaled steroids; Z79.899 Other long term (current) drug therapy
CPT/HCPCS: 36415; 71045; 80048; 80053; 80076; 82803; 83605; 83880; 84145; 84484; 85007; 85025; 86328; 87040; 92610; 93005; 94761; 96365; 96367; 96375; 99285; J0456

== ENCOUNTER 2021-03-07 13:13 | Emergency (ER) | payer MEDICARE, MEDICAID, SELFPAY ==
[2021-03-07 13:25] VITALS: BP 101/61; PULSE 98; RESP 18; TEMP 36.7; O2SAT 99; BMI 22.4
--- NOTE | 2021-03-07 13:38 | ECG_ITS ---
APPROVED REPORT Exam: Resting ECG HR:58 bpm ECG Measurements Heart Rate 58 AXES MI 144 P 60 QRSd 82 QRS 57 QT 404 T 78 QTc 396 Conclusion Sinus bradycardia Nonspecific ST abnormality Abnormal ECG Electronically signed by : Eddie Flowers, 03/08/2021 08:48:22
--- NOTE | 2021-03-07 14:02 | PC.NURSE ---
UNSUCCESFUL IV ATTEMPT AT THIS TIME. PT RESTLESS AND WILL NEED ASSISTANCE FROM OTHER STAFF MEMBERS TO OBTAIN AN IV
[2021-03-07 14:59] LABS: Basophils % 0.4 % (0.1-2.0); Eosinophils # 0.1 K/mm3 (0.0-0.4); Eosinophils % 1.1 % (0.1-12.0); Hematocrit 32.7 % (37.0-47.0); Hemoglobin 10.8 g/dL (12.2-16.2); Lymphocytes # 1.6 K/mm3 (0.7-4.5); Lymphocytes % 35.8 % (10-50); Mean Corpuscular HGB Conc 33.1 g/dL (31.8-35.4); Mean Corpuscular Volume 102.7 fl (81-99); Mean Platelet Volume 9.9 fl (7.4-10.4); Monocytes # 0.4 K/mm3 (0.1-1.0); Monocytes % 8.4 % (1.7-9.3); Neutrophils # 2.5 K/mm3 (1.8-7.8); Neutrophils % 54.3 % (37.0-80.0); Platelet Count 126 K/mm3 (142-424); Red Blood Count 3.19 M/mm3 (4.20-5.40); Red Cell Distribution Width 14.5 % (11.5-17.5); White Blood Count 4.5 K/mm3 (4.8-10.8)
[2021-03-07 15:03] LABS: VBG Base Excess 7.7 mmol/L (-2.4-2.3); VBG HCO3 32.4 mmol/L (23-30); VBG Oxygen Saturation 73.5 % (50-70); VBG PH 7.41 mmol/L (7.31-7.41); VBG PO2 41.1 mmol/L (28-40)
[2021-03-07 15:06] LABS: VBG PCO2 52.7 mmol/L (35-51)
[2021-03-07 15:12] LABS: Alanine Aminotransferase 32 U/L (12-78); Albumin Level 3.7 g/dl (3.5-5.0); Albumin/Globulin Ratio 1.4 (1.1-1.8); Alkaline Phosphatase 88 U/L (38-126); Anion Gap 4.2 mEq/L (5-15); Aspartate Amino Transferase 31 U/L (14-36); Bilirubin,Total 0.2 mg/dl (0.2-1.3); Blood Urea Nitrogen 25 mg/dl (7-17); Calcium 9.2 mg/dl (8.4-10.2); Carbon Dioxide 38 mmol/L (22.0-30.0); Chloride 105 mmol/L (98-107); Creatinine Clearance Estimated 80 mL/min (50-200); Estimated Glomerular Filt Rate 89 ml/min (>60); GFR (African American) 108 ML/MIN (>60); Globulin 2.7 g/dL (1.3-3.2); Glucose 85 mg/dl (74-100); Potassium 4.2 mmoL/L (3.5-5.1); Sodium 143 mmol/L (136-145); Total Protein,Serum 6.4 g/dl (6.3-8.2)
--- NOTE | 2021-03-07 15:15 | PC.NURSE ---
NOTIFIED MD OF VBG RESULT
--- NOTE | 2021-03-07 15:18 | HMH.EDAMS ---
ED Disposition Clinical Impression: [place] chorea Disposition: Home, Self-Care Condition on Discharge: Fair Instructions: DI for Hypoxia Additional Instructions: Checked patient's labs and no acute findings are noted labs included CBC CMP troponin Flavio placed on oxygen however she maintains oxygen saturation 97% without oxygen Referrals: Provider,Referral, [Primary Care Provider] - - Critical Care Critical Care Time: No Attestation: On 03/07/21, the high probability of a clinically significant, sudden or life threatening deterioration of the following system(s) required my full and direct attention, intervention and personal management. The time I documented below is in addition to time spent performing reported procedures but includes the following listed in this critical care notation. Medical Decision Making - Medical Records Medical records reviewed: Yes: I reviewed the patient's medical records. MR Comment: 50 year old Female from a [facility] here brought by EMS with complaints of mental status changes; patient has a history of [place] the fpc reported that she was having a low oxygen saturation however EMS reports they put her on oxygen and her oxygen saturation and condition are at baseline. CBC CMP and troponin are within normal limits vital signs also within normal limits blood pressure is 119/9393 oxygen saturation 98% rations 18 we tried her off of oxygen and she is able to maintain oxygen saturation of 97% without oxygen plan is to discharge patient back to the [facility] - [facility] Pt receiving controlled substance: No Vital Signs: 03/07/21 13:25 03/07/21 17:05 03/07/21 18:20 Temperature 98.1 F Temperature Source Oral Pulse Rate 116 H 58 L Pulse Rate [Right] 98 H Respiratory Rate 18 22 18 Blood Pressure 119/93 H 96/54 L Blood Pressure [Right Arm] 101/61 L Blood Pressure Mean [Right Arm] 74 02 Sat by Pulse Oximetry 99 94 L 95 Oxygen Delivery Method Nasal Cannula Room Air Oxygen Flow Rate (LPM) 3 - Lab Data Lab results reviewed: Yes: I reviewed the patient's lab results. Lab Results 03/07/21 13:37: VBG pH 7.41, VBG pCO2 52.7 H, VBG pO2 41.1 H, VBG HCO3 32.4 H, VBG Total CO2 34.0 H, VBG O2 Saturation 73.5 H, VBG Base Excess 7.7 H 03/07/21 14:50: WBC 4.5 L, RBC 3.19 L, Hgb 10.8 L, Hct 32.7 L, MCV 102.7 H, MCH 34.0 H, MCHC 33.1, RDW 14.5, Plt Count 126 L, MPV 9.9, Neut % (Auto) 54.3, Lymph % (Auto) 35.8, [place] % (Auto) 8.4, Eos % (Auto) 1.1, Baso % (Auto) 0.4, Neut # (Auto) 2.5, Lymph # (Auto) 1.6, [place] # (Auto) 0.4, Eos # (Auto) 0.1, Baso # (Auto) 0.0 03/07/21 14:50: Sodium 143, Potassium 4.2, Chloride 105, Carbon Dioxide 38 H, Anion Gap 4.2 L, BUN 25 H, Creatinine 0.70, Estimated Creat Clear 80, Estimated GFR 89, Est GFR ( Amer) 108, Glucose 85, Calcium 9.2, Total Bilirubin 0.2, AST 31, ALT 32, Alkaline Phosphatase 88, Troponin I < 0.01, Total Protein 6.4, Albumin 3.7, Globulin 2.7, Albumin/Globulin Ratio 1.4 Result diagrams: 03/07/21 14:50 03/07/21 14:50 Orders (Tests/Meds): ORDERS Category Date Time Status Troponin I Q3H Lab 03/07/21 19:45 Ordered Urinalysis and Microscopic Stat Lab 03/07/21 15:23 Ordered Altered Mental Status HPI - General Chief Complaint: Altered Mental Status Stated Complaint: LETHARGIC Time Seen by Provider: 03/07/21 14:19 Mode of Arrival: EMS Source of Information: EMS Limitations: No Limitations Description of Symptoms (Recalled from ER Triage Doc. by RN): EMS REPORTS [facility] REPORTS PT HAS HAD WORSENING LETHARGY STARTING THIS AM AND WOULD NOT EAT HER FOOD. EMS REPORTS REPORTS KANDACE STATED HER O2 SATS WERE IN THE 50'S ON ROOM AIR. EMS REPORTS PT WAS IN THE 90'S O2 SATS UPON ARRIVAL ON 5 LITERS OF O2. EMS REPORTS PT IS NORMALLY ON ROOM AIR. EMS REPORTS PT HAS [place] DISEASE. EMS REPORTS PT IS AT HER BASELINE MENTAL STATUS UPON ARRIVAL TO ED. PT DOES NOT APPEAR LETHARGIC IN ED T
[2021-03-07 15:50] LABS: Troponin I < 0.01 ng/ml (0.00-0.034)
[2021-03-07 17:05] VITALS: BP 119/93; PULSE 116; RESP 22; O2SAT 94
--- NOTE | 2021-03-07 17:40 | PC.NURSE ---
pt has had to be repositioned numerous times due to thrashing about in the bed
[2021-03-07 18:20] VITALS: BP 96/54; PULSE 58; RESP 18; O2SAT 95
--- NOTE | 2021-03-07 18:41 | PC.NURSE ---
GAVE REPORT TO MARYANNE IRBY AT [facility] FOR PATIENT
--- NOTE | 2021-03-07 18:45 | PC.NURSE ---
EMS NOTIFIED OF NEED FOR TRANSPORT BACK TO FACILITY. UNABLE TO GIVE AN ETA AT THIS TIME
[2021-03-07 19:45] VITALS: BP 96/59; PULSE 87; RESP 18; TEMP 36.9; O2SAT 94
== END 2021-03-07 19:47 | disposition home or self-care (01) ==
PROVIDERS: Emergency Provider Emergency Medicine
DX: G10 Huntington's disease (principal); F41.8 Other specified anxiety disorders; K21.9 Gastro-esophageal reflux disease without esophagitis; F03.90 Unspecified dementia, unspecified severity, without behavioral disturbance, psychotic disturbance, mood disturbance, and anxiety; F17.210 Nicotine dependence, cigarettes, uncomplicated; M62.81 Muscle weakness (generalized); Z79.899 Other long term (current) drug therapy; Z88.5 Allergy status to narcotic agent
CPT/HCPCS: 80053; 82803; 84484; 85025; 93005; 99283

== ENCOUNTER → 2021-03-28 15:42 | Outpatient (CLI) | payer OTHER, MEDICARE, MEDICAID, SELFPAY ==
[2021-03-28 19:55] LABS: Basophils % 0.7 % (0.1-2.0); Eosinophils % 0.5 % (0.1-12.0); Hematocrit 35.6 % (37.0-47.0); Hemoglobin 11.8 g/dL (12.2-16.2); Lymphocytes # 1.5 K/mm3 (0.7-4.5); Lymphocytes % 31.6 % (10-50); Mean Corpuscular HGB Conc 33.1 g/dL (31.8-35.4); Mean Corpuscular Hemoglobin 33.3 pg (27.0-31.2); Mean Corpuscular Volume 100.4 fl (81-99); Mean Platelet Volume 9.2 fl (7.4-10.4); Monocytes # 0.5 K/mm3 (0.1-1.0); Monocytes % 10.9 % (1.7-9.3); Neutrophils # 2.6 K/mm3 (1.8-7.8); Neutrophils % 56.4 % (37.0-80.0); Platelet Count 310 K/mm3 (142-424); Red Blood Count 3.54 M/mm3 (4.20-5.40); White Blood Count 4.7 K/mm3 (4.8-10.8)
== END ==
PROVIDERS: Visit Provider Emergency Medicine
DX: Z01.812 Encounter for preprocedural laboratory examination (principal); Z11.52 Encounter for screening for COVID-19; G10 Huntington's disease; F02.81 Dementia in other diseases classified elsewhere, unspecified severity, with behavioral disturbance
CPT/HCPCS: 85025; U0003

== ENCOUNTER → 2021-03-28 19:16 | Outpatient (CLI) | payer MEDICARE, MEDICAID, SELFPAY | PROVIDERS: PCP Emergency Medicine; Visit Provider Emergency Medicine | DX: G10 Huntington's disease (principal) ==

== ENCOUNTER 2021-03-30 09:00 | Inpatient (IN) | payer OTHER, MEDICARE, MEDICAID, SELFPAY ==
[2021-03-30] VITALS (18 sets, daily range): BP systolic 82–151; BP diastolic 42–67; PULSE 67–105; RESP 16–22; TEMP 36.5–37.6; O2SAT 94–100; BMI 16.5; BMI 15.0; BMI 14.8
--- NOTE | 2021-03-30 10:02 | HMH.SCOPE ---
- Procedure: Date: 03/30/21 Patient Date of :: 1970 Procedure Performed:: Placement of 20 Indonesian percutaneous endoscopic gastrostomy pull-type tube. Indications:: Patient is a 50-year-old female with severe Spalding's chorea who is a resident of [facility]. She recently had hospitalization for Covid in November of this year and apparently has had clinical deterioration as a baseline. She was referred for relatively urgent feeding tube placement. Performing Provider:: Rehan Jarrell MD Referring Provider:: Supa Anders MD Sedation:: MAC sedation Procedure:: Patient was taken to endoscopy procedure room. She was positioned supine position. Adequate intravenous sedation was achieved. Olympus endoscope was inserted via the oropharynx advanced through the esophagus. Stomach was cannulated and insufflated. Due to the patient's thin body habitus is light reflex was easily identified in the right upper quadrant. Pylorus was traversed and the endoscope was advanced into the duodenum which appeared grossly normal. It was withdrawn into the distal stomach in the region of the gastric antrum. There was good light reflex. Abdomen was prepped and draped. Local anesthetic was infiltrated. Small incision was made. Grasping snare was inserted via the endoscope. Needle catheter was inserted percutaneously through the incision and visualized into the gastric lumen. Loop guidewire was threaded through the catheter and grasped with the snare. Catheter was removed. Endoscope was then withdrawn placing traction on the loop guidewire. Loop guidewire was then secured to the 20 Indonesian pull-type PEG tube. Traction was placed on the loop guidewire pulling the PEG tube via the oropharynx to exit the stomach on the anterior abdominal wall. Antibiotic ointment was placed at the insertion site. The obturator device, clamped, and infusion apparatus were attached to the PEG tube as it was cut to the appropriate length. Completion endoscopy was performed revealing the umbrella of the PEG tube appropriately placed in the gastric antrum. Stomach was desufflated as the endoscope was withdrawn. Please note that the PEG was secured at approximately the 2 cm nehemias. Findings:: Limited upper endoscopy revealed unremarkable anatomy Recommendations:: Withhold from using PEG tube until tomorrow morning. Maintain precautions for patient pulling the PEG tube out with abdominal binder. Complications:: None immediately apparent Estimated blood obtained (mL): 2
[2021-03-30 10:13] LABS: HCG Qualitative, Serum Negative (Negative)
--- NOTE | 2021-03-30 10:26 | SUR.OPER ---
PEG ANCHORED AT 2CM.
--- NOTE | 2021-03-30 11:07 | HMH.ANESCL ---
[facility] Anesthesia Checklist - Patient Identification Patient Identification: Arm Band - Structural Data Admitted From: Long-term Nursing Facility Planned Operative Procedure/s: EGD with PEG Consent for Planned Operative Procedure(s) Verified: Yes Verified Documents: Surgical Consent, History and Physical - NPO Status Verified Time NPO: 00:00 - Airway Assessment C-Spine Mobility Assessed: Yes TMJ Mobility Assessed: Yes Dentition: Poor Dentition - Neurological Assessment Level of Consciousness: Awake, Alert - Anesthesia Plan Anesthesia Risk discussed: Yes Anesthesia Plan: Verified ASA Class: IV Anesthesia Type: MAC [facility] History Medical History: Reports:: Anxiety, Dementia, Depression, Gastroesophageal Reflux Disease(GERD) Denies:: Cancer, Diabetes Mellitus Type 1, Diabetes Mellitus Type 2, Internal Pacemaker, MRSA Comment Only: Seizures (huntingtons) *Have you ever received a pneumonia vaccine?: No *Have you received a flu vaccine this season?: Yes Other Medical History: Reports: Other Anesthesia experience/problems:: None Laterality Cases: Left: Arthroscopy Knee Other Surgeries: No: Pacemaker Amputation: No Fractures: No - *Social History Last grade of school completed: High school graduate Smoking Status: Smoker, status unknown Alcohol Intake: never Substance Use Type: denies use *Occupational Status:: disabled Housing: assisted living facility *Travel in the last 8 weeks: None - Psychiatric History Pschychiatric History:: Reports:: Anxiety, Depression Family Hx:: Cancer, Heart Attack
--- NOTE | 2021-03-30 11:18 | PC.NURSE ---
Pt arrived to the floor at this time
--- NOTE | 2021-03-30 14:52 | HMH.PHAINT ---
MEDICATION RECONCILIATION COMPLETED ON PATIENT USING MAR FROM HOSPICE. -REBA WELCH, MORENAD
--- NOTE | 2021-03-30 14:53 | P.CONPHA_ITS ---
[facility] Pharmacy VTE Monitoring - Patient Demographics Admission date: 03/30/21 Report Date: 03/30/21 Time: 14:53 Allergies/Adverse Reactions: Patient Allergies codeine [CODEINE] Allergy (Unknown, Verified 03/30/21 09:41) I-RASH Height: 1.68 m Weight: 42.411 kg - Prophylaxis VTE Prophylaxis Ordered?: Yes Types of VTE Prophylaxis: TEDS Knee High Location of Applied Device: Bilateral Lower Extremeties
--- NOTE | 2021-03-30 17:09 | PC.NURSE ---
Dr. Anders's office notified earlier today that pt didnt have orders. Will make neonatologist Dr. drake as well, which is Dr. Flowers. Pt has been turned and repositioned. See Bio for wound details. Dsg's applied. Peg tube is in place with no problems noted and remains at 2 cm as placed. Did speak with POA in RE to code status. Pt is incont and briefs changed per staff. S1,S2. VSS. Lungs cta. Will cont to mx.
--- NOTE | 2021-03-30 18:01 | DIET.NUTRFU ---
Pt admit for PEG placement. In good position and to be used tomorrow morning. 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 Pt is at high risk refeeding syndrome, slow and low initiation/advancement enteral nutrition important. Will initiate goal rate at ~75% needs and advance as indicated. Electrolytes WNL and MAP>60. Osmolite is most appropriate formula at this time. Will monitor closely and alter regimen as indicated. Upon MD order, recommend initiating continuous tube feeding regimen of Osmolite 1.2 at 16ml/h and advancing by 10ml/h q 8h as tolerated to goal rate of 36ml/h. This regimen provides 994kcal, 36g protein, 119g cho, 28g fat, and 697ml free water. Pt currently receiving IVF at 25ml/h, recommend water flushes of 30-60ml at GRV checks/for tube irrigation. If IVF dc'd, recommend water flushes of 140ml q 6h to meet additional fluid needs not provided by formula.
--- NOTE | 2021-03-30 18:42 | PC.NURSE ---
Dr. Flowers did order some of home meds - risperidone 4 mg bid per peg, clonazepam 1 mg per peg every 6 hrs, and tylenol 500 mg per peg every 4 hrs prn. Meds are to start in the am via G tube route, since Peg isnt to be used until the morning.
--- NOTE | 2021-03-30 19:38 | PC.NURSE ---
Oral care provided by this RN.
--- NOTE | 2021-03-31 03:06 | PC.NURSE ---
Pt has been nonverbal this shift. Pt able to withdraw from pain, but is nonresponsive otherwise. Pt continues to jerk all extremities constantly. Lungs CTA, on room air. Bowel sounds x4, abd soft and nontender. PEG tube in place, no drainage noted around site. Abd binder in place overtop. Pt turned q2h. Heel protectors in place. IV patent, NS @ 50. VSS, no concerns at this time.
[2021-03-31 04:00] VITALS: BP 128/57; PULSE 72; RESP 18; TEMP 36.8; O2SAT 94
[2021-03-31 06:12] VITALS: BMI 14.6
--- NOTE | 2021-03-31 06:32 | P.PN_ITS ---
Subjective Narrative: Per nursing staff she has been fine overnight . Progress Note: A&P (1) Feeding difficulty Status: Acute Assessment and plan: Stable status post PEG placement. Initiate tube feeds Possible discharge back to facility later today (2) [place]'s disease Status: Chronic Exam Vital signs and Labs for Last 24 Hours: Temp Pulse Resp BP Pulse Ox 98.2 F 72 18 128/57 L 94 L 03/31/21 04:00 03/31/21 04:00 03/31/21 04:00 03/31/21 04:00 03/31/21 04:00 Laboratory Results - last 24 hr 03/30/21 09:49: Serum HCG, Qual Negative I & O for Last 24 hours: Intake & Output 03/28/21 03/29/21 03/30/21 03/31/21 11:59 11:59 11:59 11:59 Intake Total 0 / 0 Balance 0 / 0 Weight 93 lb 8 oz 91 lb 3 oz Microbiology Reports for the Last 24 Hours: Microbiology 03/30/21 09:25 Nasopharyngeal Coronavirus COVID-19 PCR - Final - Constitutional thin - *Routine Respiratory Exam Absent: respiratory distress - *Routine Abdominal Exam Present: soft Comments: PEG in position at 2 cm. Tube easily rotates. No sign of bleeding or infection.
[2021-03-31 07:25] VITALS: BP 130/68; PULSE 70; RESP 20; TEMP 37.3; O2SAT 91
--- NOTE | 2021-03-31 11:25 | SW/DCPLANNER ---
Addendum entered by Marci Domínguez 03/31/21 11:26: Cassie confirmed no further COVID testing needed for this patient to discharge. Original Note: This patient currently resides at [facility] under Hospice services. I spoke with Arlene Magallanes from Hospice this AM whom confirmed this patients stay is related to Hospice. This patient will discharge back to [facility] today: I have informed Cassie with [facility] and Arlene with Hospice.
[2021-03-31 12:12] VITALS: BP 141/64; PULSE 83; RESP 22; TEMP 36.6; O2SAT 92
--- NOTE | 2021-03-31 12:41 | HMH.HPDC ---
General - General Admission date:: 03/30/21 Discharge date: 03/31/21 *Admission Date: 03/30/21 *Chief complaint: decrease oral intake *History of present illness: 50-year-old female with severe Pawling's chorea who is a resident of extended care facility receiving hospice care. She recently had hospitalization for Covid in November of this year and apparently has had clinical deterioration as a baseline. She was referred for relatively urgent feeding tube placement. Per staff at retirement pt has not been taking oral intake or meds. pt admitted s/p peg tube placement and monitoring. [facility] History I have reviewed the patient's past medical history: Yes Medical History: Reports:: Anxiety, Dementia, Depression, Gastroesophageal Reflux Disease(GERD) Denies:: Cancer, Diabetes Mellitus Type 1, Diabetes Mellitus Type 2, Internal Pacemaker, MRSA Comment Only: Seizures (huntingtons) *Have you ever received a pneumonia vaccine?: No *Have you received a flu vaccine this season?: Yes Other Medical History: Reports: Other Anesthesia experience/problems:: None Laterality Cases: Left: Arthroscopy Knee Other Surgeries: No: Pacemaker Amputation: No Fractures: No - *Social History Last grade of school completed: High school graduate Smoking Status: Smoker, status unknown Alcohol Intake: never Substance Use Type: denies use *Occupational Status:: disabled Housing: assisted living facility *Travel in the last 8 weeks: None - Psychiatric History Pschychiatric History:: Reports:: Anxiety, Depression Family Hx:: Cancer, Heart Attack Review of Systems - Review of Systems Review of systems:: unable to obtain - Constitutional Reports anorexia, Reports weight loss - Eyes Denies blurry vision - ENT Denies sinus pain - *Cardiovascular Denies irregular heart rhythm - *Respiratory Denies pain on inspiration - *Gastrointestinal Denies loose stools - *Genitourinary Denies abnormal vaginal bleeding - *Musculoskeletal Denies decreased muscle mass - Integumentary/Breasts Denies change in hair - *Neurologic Denies loss of vision - Psychiatric Denies anxiety - Endocrine Denies flushing - Hematologic/Lymphatic Denies enlarged lymph nodes - Allergic/Immunologic Denies itchy eyes Exam Vital signs and Labs for Last 24 Hours: Temp Pulse Resp BP Pulse Ox 98 F 83 22 141/64 H 92 L 03/31/21 12:12 03/31/21 12:12 03/31/21 12:12 03/31/21 12:12 03/31/21 12:12 I & O for Last 24 hours: Intake & Output 03/29/21 03/30/21 03/31/21 04/01/21 11:59 11:59 11:59 11:59 Intake Total 0 / 0 Output Total 0 / 0 Balance 0 / 0 Weight 93 lb 8 oz 91 lb 3 oz Microbiology Reports for the Last 24 Hours: Microbiology 03/30/21 09:25 Nasopharyngeal Coronavirus COVID-19 PCR - Final - Constitutional no acute distress, thin, chronically ill appearing - *Routine HEENT Exam Head: Present: normocephalic Eye: Present: PERRL ENT: Present: mucous membranes moist - *Routine Neck Exam Present: supple. Absent: lymphadenopathy - *Routine Respiratory Exam Present: CTA bilaterally - *Routine Cardiovascular Exam Present: RRR - *Routine Abdominal Exam Present: soft, normoactive bowel sounds. Absent: tenderness Comments: peg tube placement - *Routine Rectal Exam Rectal:: deferred - *Routine Genitalia Exam Genitalia:: deferred - *Routine Extremities Exam Absent: cyanosis, clubbing, edema Comments: ridged tremors - *Routine Skin Exam Present: warm. Absent: rash - *Routine Neurological Exam Present: alert, tremors pt nonverbal - Routine Psychiatric Exam Present: unable to assess Hospital Course Hospital Course: Laboratory Tests 03/30/21 09:49 Serum HCG, Qual Negative Microbiology 03/30/21 09:25 Nasopharyngeal Coronavirus COVID-19 PCR - Final Procedure Performed:: Placement of 20 Romansh percutaneous endoscopic gastrostomy pull-type t
== END 2021-03-31 14:45 | disposition hospice, inpatient (51) | DRG 641 ==
LOC: 2ND 09:04
PROVIDERS: Surgery; Admitting Provider Emergency Medicine; PCP Emergency Medicine; Visit Provider Emergency Medicine
PROC: 0DH63UZ Insertion of Feeding Device into Stomach, Percutaneous Approach (ICD-10-PCS; CPT 43246; principal; 2021-03-30 08:00)
DX: R63.3 Feeding difficulties (principal); G10 Huntington's disease; E46 Unspecified protein-calorie malnutrition; Z68.1 Body mass index [BMI] 19.9 or less, adult; F02.80 Dementia in other diseases classified elsewhere, unspecified severity, without behavioral disturbance, psychotic disturbance, mood disturbance, and anxiety; R13.12 Dysphagia, oropharyngeal phase; Z51.5 Encounter for palliative care; Z86.16 Personal history of COVID-19; R26.2 Difficulty in walking, not elsewhere classified; F41.9 Anxiety disorder, unspecified; F32.9 Major depressive disorder, single episode, unspecified; K21.9 Gastro-esophageal reflux disease without esophagitis
CPT/HCPCS: 43246; 84703; U0003

== ENCOUNTER 2021-04-01 10:07 | Inpatient (IN) | payer OTHER, MEDICARE, MEDICAID, SELFPAY ==
[2021-04-01] VITALS (17 sets, daily range): BP systolic 45–178; BP diastolic 21–150; PULSE 81–113; RESP 18–43; TEMP 36.8–39.3; O2SAT 32–97; BMI 16.2; BMI 13.4
--- NOTE | 2021-04-01 10:09 | XR_ITS ---
PROCEDURE: XR CHEST PORTABLE CLINICAL HISTORY: sob COMPARISON: CR XR CHEST AP from 10/21/2020 CR XR CHEST PORTABLE from 11/23/2020 CR XR CHEST PORTABLE from 11/25/[address] ANGIO CHEST from 04/01/2021 FINDINGS: The lung dudley are fairly well expanded. The stimulator device overlies right upper chest obscuring adequate evaluation of the right upper lobe. There are patchy ill-defined opacities in the right perihilar region right lobe consistent with a diffuse pneumonic infiltrate. Left lung dudley well expanded and clear. Cardiac size is normal and vascularity is normal and there is no pleural fluid. IMPRESSION: Probable mild diffuse pneumonic infiltrate involving the right perihilar region right lower lobe, right upper lobe not adequately evaluated on this image Dictated by: Dr. Amadeo Sandoval MD 04/01/2021 10:59 Dr. Amadeo Sandoval MD in [place] 04/01/2021 10:59
--- NOTE | 2021-04-01 10:09 | CT_ITS ---
PROCEDURE: CT ABDOMEN PELVIS W CON CLINICAL INDICATION: distention, sepsis COMPARISON: CT ABDPELW CT ABD PELVIS W/ CONTRAST from 07/23/2015 TECHNIQUE: IV Contrast: 75ML OPTIRAY 350 Oral Contrast none given Axial images obtained with sagittal and coronal reformats. All CT scans at the facility use one or more dose reduction, viz: automated exposure control, ma/kV adjustment per patient size (including targeted exams where dose is matched to indication, i.e. head), or iterative reconstruction technique. FINDINGS: Lower thorax: See CT chest report ABDOMEN: Liver: No masses or biliary dilatation. Gallbladder: Nondistended. No radio opaque stones. Pancreas: No masses or peripancreatic fluid collections. Spleen: unremarkable Adrenals: unremarkable Kidneys/ureters: unremarkable ABDOMEN & PELVIS: Stomach bowel: The stomach is massively distended with fluid and air. There is a gastrostomy feeding tube seen entering the antrum of the stomach. Presumably there is a one-way valve in the gastrostomy feeding tube not allowing fluid to drain from the stomach. 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 The small bowel loops are markedly compressed and displaced inferiorly. The transverse colon is markedly ptotic as well secondary to the mass effect of the distended stomach. There is a moderate amount stool in the ascending and descending colon. Peritoneum: No abnormal fluid collections. No obvious inflammatory changes. No free air. Lymph nodes: No enlarged lymph nodes apparent. Vasculature: No evidence of abdominal aortic aneurysm. No retroperitoneal hemorrhage evident. Bones: No acute fracture PELVIS: Reproductive: unremarkable Bladder: The uterus is decompressed, there is a Escobar catheter in place. Appendix: Not definitely visualized but the anatomy is so distorted secondary to the massively distended stomach that evaluation of the appendix is suboptimal. 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 The case was discussed with the emergency room physician and placement of NG tube is certainly recommended at this time Dictated by: Dr. Amadeo Sandoval MD 04/01/2021 11:38 Dr. Amadeo Sandoval MD in [place] 04/01/2021 11:38
--- NOTE | 2021-04-01 10:11 | CT_ITS ---
PROCEDURE: CT ANGIO CHEST CLINCIAL INDICATION: hypoxia COMPARISON: Portable upright chest same date TECHNIQUE: IV Contrast: 70ML Isovue 370 Axial images obtained with sagittal and coronal reformats. All CT scans at the facility use one or more dose reduction, viz: automated exposure control, ma/kV adjustment per patient size (including targeted exams where dose is matched to indication, i.e. head), or iterative reconstruction technique. FINDINGS: HEART AND MEDIASTINAL STRUCTURES: Unremarkable. There is excellent vascular opacification. There is no CT evidence of pulmonary emboli. LUNGS AND PLEURAL SPACES: Coarse bronchovascular markings are seen in the right perihilar region and right lower lobe along with some some scattered areas of airspace disease and findings suggesting combination of chronic scarring and possibly superimposed acute pneumonic infiltrate. There is prominent diffuse dilatation of the entire thoracic esophagus and the visualized portion of the stomach shows marked dilatation. Certainly aspiration pneumonia is a likely possibility. BONY STRUCTURES: There are mild degenerate changes lower thoracic spine. UPPER ABDOMEN: Markedly distended visualized portion of the stomach containing large amount of fluid and air. ADDITIONAL FINDINGS: No other significant abnormalities. IMPRESSION: No definite evidence of pulmonary emboli. Diffuse esophageal dilatation containing fluid raising possibility of either the early achalasia or possibly chronic scarring from reflux esophagitis. The suggesting possibility of combination of postinflammatory scarring and possibly superimposed acute pneumonic infiltrate right lower lobe Dictated by: Dr. Amadeo Sandoval MD 04/01/2021 11:08 Dr. Amadeo Sandoval MD in [place] 04/01/2021 11:08
--- NOTE | 2021-04-01 10:19 | PC.NURSE ---
Pt went to ct
[2021-04-01 10:23] LABS: Microscopic, Urine URINE MICROSCOPIC (MICROSCOPIC)
[2021-04-01 10:27] LABS: Basophils % 0.1 % (0.1-2.0); Eosinophils % 0.1 % (0.1-12.0); Hematocrit 31.4 % (37.0-47.0); Hemoglobin 10.1 g/dL (12.2-16.2); Lymphocytes # 1.1 K/mm3 (0.7-4.5); Lymphocytes % 5.3 % (10-50); Mean Corpuscular HGB Conc 32.3 g/dL (31.8-35.4); Mean Corpuscular Volume 105.3 fl (81-99); Mean Platelet Volume 9.2 fl (7.4-10.4); Monocytes # 0.3 K/mm3 (0.1-1.0); Monocytes % 1.7 % (1.7-9.3); Neutrophils # 19.1 K/mm3 (1.8-7.8); Neutrophils % 92.8 % (37.0-80.0); Platelet Count 327 K/mm3 (142-424); Red Blood Count 2.98 M/mm3 (4.20-5.40); Red Cell Distribution Width 15.3 % (11.5-17.5); White Blood Count 20.6 K/mm3 (4.8-10.8)
[2021-04-01 10:29] LABS: Appearance,Urine CLEAR (Clear); Blood, Urine Negative (Negative); Color,Urine YELLOW (Yellow); Glucose,Urine (UA) Negative (Negative); Ketones,Urine TRACE (Negative); Leukocyte Esterase,Urine Negative (Negative); Nitrate,Urine Negative (Negative); PH,Urine 5.5 (5.0-8.5); Protein,Urine 1+ (Negative); Specific Gravity, Urine >= 1.030 (1.005-1.030); Urobilinogen,Urine 0.2 EU/dl (0.2)
[2021-04-01 10:29] LABS: Alanine Aminotransferase 81 U/L (12-78); Albumin Level 3.6 g/dl (3.5-5.0); Albumin/Globulin Ratio 1.1 (1.1-1.8); Alkaline Phosphatase 128 U/L (38-126); Anion Gap 7.4 mEq/L (5-15); Aspartate Amino Transferase 40 U/L (14-36); Bilirubin,Total 0.8 mg/dl (0.2-1.3); Blood Urea Nitrogen 38 mg/dl (7-17); Calcium 9.3 mg/dl (8.4-10.2); Carbon Dioxide 32 mmol/L (22.0-30.0); Estimated Glomerular Filt Rate 53 ml/min (>60); GFR (African American) 64 ML/MIN (>60); Globulin 3.2 g/dL (1.3-3.2); Glucose 140 mg/dl (74-100); Lipase 376 U/L (23-300); Potassium 3.4 mmoL/L (3.5-5.1); Total Protein,Serum 6.8 g/dl (6.3-8.2)
[2021-04-01 10:30] LABS: Sodium 165 mmol/L (136-145)
[2021-04-01 10:31] LABS: Chloride 129 mmol/L (98-107); MANUAL DIFFERENTIAL MANUAL DIFFERENTIAL (MANUAL DIFF)
--- NOTE | 2021-04-01 10:37 | PC.NURSE ---
MD aware of sodium results of 165, chloride notification of 129.
[2021-04-01 10:42] LABS: Anisocytosis 1+; Lymphocytes % 10 % (10-50); Macrocytosis 1+; Monocytes % 3 % (2-9); Neutrophils % 87 % (42-76); Platelet Estimate Normal; Total Cells Counted 100; Troponin I 0.02 ng/ml (0.00-0.034)
[2021-04-01 10:48] LABS: NT Pro Brain Natriuretic Pep. 1250 pg/mL (0-125)
--- NOTE | 2021-04-01 10:53 | INFXCTL.NOTE ---
Respiratory called for deep suction of patient
[2021-04-01 10:55] LABS: Bilirubin,Urine 1+ (Negative)
[2021-04-01 10:59] LABS: Squamous Epithelial Cell,Urine Occasional #/hpf (0-5)
[2021-04-01 11:00] LABS: Bacteria,Urine 1+ /lpf; Yeast,Urine 1+ /lpf
--- NOTE | 2021-04-01 11:10 | HMH.EDGENADL ---
ED Disposition Clinical Impression: End of life care Disposition: Admitted as Observation Condition on Discharge: hospice, end of life Referrals: Christopher Anders MD [Primary Care Provider] - Time of Disposition: 16:20 - Critical Care Critical Care Time: Yes Attestation: On 04/01/21, the high probability of a clinically significant, sudden or life threatening deterioration of the following system(s) required my full and direct attention, intervention and personal management. The time I documented below is in addition to time spent performing reported procedures but includes the following listed in this critical care notation. Total Critical Care Time: 35 Vital system(s) involved:: Circulatory Failure, Respiratory Failure My critical care processes included: Assessment & monitoring of V/S, Initial and Re-exams, Data Review/Interpretation, Coordinating Care, Medication Orders and management, Documentation Medical Decision Making - Medical Records Medical records reviewed: Yes: I reviewed the patient's medical records. - Uday Inquiry Pt receiving controlled substance: No Vital Signs: 04/01/21 10:08 04/01/21 10:09 04/01/21 10:14 Temperature 102.8 F H 101.0 F H Temperature Source Rectal Rectal Pulse Rate 98 H Respiratory Rate 40 H 18 Blood Pressure 178/150 H Blood Pressure Mean 156 02 Sat by Pulse Oximetry 86 L 97 Oxygen Delivery Method Room Air 04/01/21 10:18 04/01/21 10:54 04/01/21 11:00 Temperature Temperature Source Pulse Rate 100 H 113 H 96 H Respiratory Rate 20 34 H 43 H Blood Pressure 99/60 L 105/63 L 117/57 L Blood Pressure Mean 73 68 75 02 Sat by Pulse Oximetry 97 95 97 Oxygen Delivery Method 04/01/21 11:30 04/01/21 12:00 04/01/21 12:30 Temperature Temperature Source Pulse Rate 81 86 90 Respiratory Rate 26 H 28 H 20 Blood Pressure 102/54 L 90/44 L 73/34 L Blood Pressure Mean 65 59 42 02 Sat by Pulse Oximetry 88 L 90 L 53 L Oxygen Delivery Method 04/01/21 13:00 04/01/21 13:30 04/01/21 14:00 Temperature Temperature Source Pulse Rate 92 H 100 H 107 H Respiratory Rate 18 32 H 24 Blood Pressure 84/44 L 88/32 L 75/33 L Blood Pressure Mean 51 51 48 02 Sat by Pulse Oximetry 59 L 44 L 32 L Oxygen Delivery Method 04/01/21 14:30 04/01/21 15:00 04/01/21 15:30 Temperature Temperature Source Pulse Rate 110 H 107 H Respiratory Rate 22 22 24 Blood Pressure 63/30 L 59/30 L 60/22 L Blood Pressure Mean 41 36 30 02 Sat by Pulse Oximetry 40 L 42 L 44 L Oxygen Delivery Method - Lab Data Lab results reviewed: Yes: I reviewed the patient's lab results. Lab Results 04/01/21 10:05: WBC 20.6 H*, RBC 2.98 L, Hgb 10.1 L, Hct 31.4 L, MCV 105.3 H, MCH 34.0 H, MCHC 32.3, RDW 15.3, Plt Count 327, MPV 9.2, Neut % (Auto) 92.8 H, Lymph % (Auto) 5.3 L, [place] % (Auto) 1.7, Eos % (Auto) 0.1, Baso % (Auto) 0.1, Neut # (Auto) 19.1 H, Lymph # (Auto) 1.1, [place] # (Auto) 0.3, Eos # (Auto) 0.0, Baso # (Auto) 0.0, Total Counted 100, Neutrophils % (Manual) 87 H, Lymphocytes % (Manual) 10, Monocytes % (Manual) 3, Platelet Estimate Normal, Anisocytosis 1+, Macrocytosis 1+ 04/01/21 10:05: Sodium 165 H*, Potassium 3.4 L, Chloride 129 H, Carbon Dioxide 32 H, Anion Gap 7.4, BUN 38 H, Creatinine 1.10 H, Estimated GFR 53 L, Est GFR ( Amer) 64, Glucose 140 H, Calcium 9.3, Total Bilirubin 0.8, AST 40 H, ALT 81 H, Alkaline Phosphatase 128 H, Troponin I 0.02, Total Protein 6.8, Albumin 3.6, Globulin 3.2, Albumin/Globulin Ratio 1.1, Lipase 376 H 04/01/21 10:05: NT-Pro-B Natriuret Pep 1250 H 04/01/21 10:20: Urine Color Yellow, Urine Appearance Clear, Urine pH 5.5, Ur Specific [place] >= 1.030, Urine Protein 1+, Urine Glucose (UA) Negative, Urine Ketones Trace, Urine Blood Negative, Urine Nitrate Negative, Urine Bilirubin 1+ A, Urine Urobilinogen 0.2, Ur Leukocyte Esterase Negative, Urine RBC None, Urine WBC 3-5, Ur Squamous Epith Cells Occasional, Urine Bacteria 1+, Urine Yeast 1+
--- NOTE | 2021-04-01 11:24 | ECG_ITS ---
APPROVED REPORT Exam: Resting ECG HR:94 bpm ECG Measurements Heart Rate 94 AXES LA 122 P 30 QRSd 66 QRS 13 QT 562 T 141 QTc 702 Conclusion Undetermined rhythm Marked artifact limits interpretation Prolonged QT Abnormal ECG Electronically signed by : Eddie Flowers, 04/02/2021 07:22:49
--- NOTE | 2021-04-01 11:39 | PC.NURSE ---
14f ng placed to intermittent suction at this time.
--- NOTE | 2021-04-01 11:56 | PC.NURSE ---
Updated fci on pt condition
--- NOTE | 2021-04-01 16:09 | PC.NURSE ---
Spoke with hospice nurse about admission to hospital for end of life care.
--- NOTE | 2021-04-01 17:29 | PC.NURSE ---
REPORT CALLED TO FLOOR
--- NOTE | 2021-04-01 17:41 | PC.NURSE ---
Pt arrived to the floor at this time.
--- NOTE | 2021-04-01 18:14 | PC.WOUNDNOTE ---
4X2 NON FLUID FILLED BLISTER. NO DRAINAGE NOTED, ENCIRCLED WITH BLUE COLOR SKIN.
--- NOTE | 2021-04-01 20:09 | P.DN_ITS ---
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 No resuscitative measures taken as such. - Additional Data Confirmation of : no pulse, no respirations, no heart sounds, pupils fixed and dilated Family: contacted Attending/PCP notified?: Yes Attending physician: Christopher Anders MD Was code activated?: No Autopsy requested?: No branch examiner notified?: No Organ bank notified?: No Advance directives: No
--- NOTE | 2021-04-01 22:38 | PC.NURSE ---
Report received from Hipolito Egan at 1915. Pt friend requested to speak with nurse and stated that she did not want to stay and requested to be called if pt passes. She stated that she could not handle staying. At 1947, pt noted to be agonal breathing. TOVanita 1952. MD Driscoll was notified at 1958. ER MD Christopher Martinez pronounced pt. Aunt (POA) was notified to come to hospital at 2016. JIMBO was called at 2023. Was placed on hold. Spoke with Catarina Linares from [facility] at 2036. Pt ruled out for donation. Case # [id number]. Hospice nurse notified at 2044. 2050 Curriculum Writer notified. Ruled out. POA arrived and stated they would like to use [facility] [employer] service. [employer] notified at 2057. [address] notified. Attempted twice to notify pt's friend. Clarisa, pt's friend called back at 2241. Awaiting arrival of [facility].
--- NOTE | 2021-04-02 00:45 | PC.NURSE ---
Pt left floor via [employer] at 0005
--- NOTE | 2021-04-04 18:52 | HMH.HPDC ---
General - General Admission date:: 04/01/21 Discharge date: 04/01/21 *Admission Date: 04/01/21 *Chief complaint: end of life care *History of present illness: 50 yr old female presented to ed with c/o of decline in mental status. Pt is a hospice pt that had a peg tube placed a few days ago for comfort. Pt admitted from ed for end of life care. [facility] History I have reviewed the patient's past medical history: Yes Medical History: Reports:: Anxiety, Dementia, Depression, Gastroesophageal Reflux Disease(GERD) Denies:: Cancer, Diabetes Mellitus Type 1, Diabetes Mellitus Type 2, Internal Pacemaker, MRSA Comment Only: Seizures (huntingtons) *Have you ever received a pneumonia vaccine?: No () *Have you received a flu vaccine this season?: No () Other Medical History: Reports: Other Laterality Cases: Left: Arthroscopy Knee Other Surgeries: No: Pacemaker Amputation: No Fractures: No - *Social History Smoking Status: Never smoker Alcohol Intake: never Substance Use Type: denies use *Occupational Status:: disabled Housing: assisted living facility *Travel in the last 8 weeks: None - Psychiatric History Pschychiatric History:: Reports:: Anxiety, Depression Family Hx:: Unable to obtain Review of Systems - Review of Systems Review of systems:: unable to obtain Exam Vital signs and Labs for Last 24 Hours: Temp Pulse Resp BP Pulse Ox 98.2 F 98 H 20 45/21 L 57 L 04/01/21 17:53 04/01/21 17:53 04/01/21 17:53 04/01/21 17:53 04/01/21 17:53 I & O for Last 24 hours: Intake & Output 04/02/21 04/03/21 04/04/21 04/05/21 11:59 11:59 11:59 11:59 Weight 85 lb 9 oz Narrative: pt prior to having assessment obtained. 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 (3) Feeding difficulty Status: Acute (4) Hospice care Status: Acute Discharge Plan - Patient Discharge Instructions ACTIVITY: Other DIET: other - Follow up Plan Disposition: Condition at discharge:: Home Medications: Home Medications Medication Instructions Recorded Confirmed Type acetaminophen 500 mg tablet 500 mg PO Q4HP PRN tab 01/01/18 04/01/21 History amantadine HCl 100 mg capsule 100 mg PO TID cap 01/01/18 04/01/21 History bisacodyl 10 mg rectal suppository 10 mg RC DAILYP PRN 01/01/18 04/01/21 History docusate sodium 250 mg capsule 1 tab PO DAILY cap 01/01/18 04/01/21 History fluticasone propionate 50 1 spray NS DAILY g 01/01/18 04/01/21 History mcg/actuation nasal spray,suspension loperamide 2 mg capsule 2 mg PO Q6HP PRN cap 01/01/18 04/01/21 History loratadine 10 mg tablet 10 mg PO DAILY tab 01/01/18 04/01/21 History melatonin 3 mg tablet 3 mg PO HS 01/01/18 04/01/21 History omeprazole 40 mg capsule,delayed 40 mg PO BID cap 01/01/18 04/01/21 History release Promethazine HCl [Phenadoz] 12.5 mg RC QIDP PRN 11/23/20 04/01/21 History Divalproex Sodium [Depakote 500 mg PO QID 11/24/20 04/01/21 History Sprinkle 125mg capsule] Guaifenesin/Dextromethorphan 5 ml PO Q4HP PRN 11/24/20 03/30/21 History [Robafen Dm Cough 100-10 mg/5Ml] Sennosides/Docusate Sodium 2 each PO BID 11/24/20 03/30/21 History [Senokot-S Tablet] ondansetron HCL [Ondansetron 8mg 8 mg PO TIDP PRN 11/24/20 03/30/21 History tab*] risperiDONE [Risperidone] 4 mg PO BID 11/24/20 04/01/21 History Deutetrabenazine [Austedo] 12 mg
== END 2021-04-02 00:05 | disposition expired | DRG 57 ==
LOC: ER 16:21 → 2ND 04-02 11:47
PROVIDERS: Admitting Provider Emergency Medicine; Emergency Provider Family Medicine; PCP Emergency Medicine; Visit Provider Emergency Medicine
DX: G10 Huntington's disease (principal); Z66 Do not resuscitate; Z51.5 Encounter for palliative care; Z93.1 Gastrostomy status; R63.3 Feeding difficulties; F41.9 Anxiety disorder, unspecified; F32.9 Major depressive disorder, single episode, unspecified; K21.9 Gastro-esophageal reflux disease without esophagitis; F03.90 Unspecified dementia, unspecified severity, without behavioral disturbance, psychotic disturbance, mood disturbance, and anxiety; F02.80 Dementia in other diseases classified elsewhere, unspecified severity, without behavioral disturbance, psychotic disturbance, mood disturbance, and anxiety
CPT/HCPCS: 71045; 71275; 74177; 80053; 81001; 83690; 83880; 84484; 85007; 85025; 93005; 96365; 96367; 96375; 99284; G0378; J0131; J3370; Q9967; U0003